=== PATIENT | female | born 1995 | race Two or more races ===

== ENCOUNTER 2021-08-28 15:11 | Inpatient (IN) | payer OTHER ==
[2021-08-28] MEDS ORDERED: Nalbuphine 10 MG/1 ML Vial IVPUSH PRN (15:31)
[2021-08-28] MEDS ORDERED: Carboprost Tromethamine 250 MCG/1 ML Amp IM PRN (15:31)
[2021-08-28] MEDS ORDERED: Water For Irrigation,Sterile 1,000 ML Container IRR PRN (15:31)
[2021-08-28] MEDS ORDERED: Sodium Chloride 0.9% 2.5 ML Syringe FLUSH PRN (15:31)
[2021-08-28] MEDS ORDERED: Tranexamic Acid 1,000 MG in Sodium Chloride 0.9% 100 ML IV PRN (15:31)
[2021-08-28] MEDS ORDERED: Ondansetron 4 MG/2 ML SDV IVPUSH PRN (15:31)
[2021-08-28] MEDS ORDERED: Misoprostol 200 MCG Tab PO PRN (15:31)
[2021-08-28] MEDS ORDERED: Sodium Chloride 0.9% 10 ML Syringe FLUSH PRN (15:31)
[2021-08-28] MEDS ORDERED: Sodium Chloride 0.9% 10 ML SDV IV PRN (15:31)
[2021-08-28] MEDS ORDERED: Butorphanol 1 MG/ML SDV IVPUSH PRN (15:31)
[2021-08-28] MEDS ORDERED: Lidocaine 1% 50 ML MDV INJECT PRN (15:31)
[2021-08-28] MEDS ORDERED: Methylergonovine 0.2 MG/1 ML Amp IM PRN (15:31)
[2021-08-28] MEDS ORDERED: Oxytocin/0.9 % Sodium Chloride 30 UNIT/500 ML BAG IV SCH ×2 (15:45→22:15)
--- NOTE | 2021-08-28 15:49 | PCM.LDHP ---
L&D History of Present Illness - General Date of Service: 08/28/21 Admit Problem/Dx: Patient Status Order with Admit Dx/Problem 08/28/21 15:31 Patient Status [ADT] Routine Admission Diagnosis/Problem Admission Diagnosis/Problem Source of Information: Patient History Limitations: Reports: No Limitations - History of Present Illness Introduction:: 25 year old G1 female at 40w4d (EDC 08/24/2021 by 7w2d US) presents in spontaneous labor. Was evaluated on labor and delivery for contractions every 6- 10 minutes this morning, however, no cervical change was noted and she was discharged with labor precautions. States that around 1400 this afternoon, her contractions increased in intensity to every 4 minutes and they return to the hospital. Requesting epidural for pain management at this time. Denies leaking fluid or vaginal bleeding. Reports good movement. uncomplicated except for GBS positive status. 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: Reports: Musculoskeletal History: Reports: None Neurological History: Reports: None Psychiatric History: Reports: Depression Endocrine/Metabolic History: Reports: Hypothyroidism Hematologic History: Reports: None - Infectious Disease History Infectious Disease History: Reports: None - Past Surgical History HEENT Surgical History: Reports: Tonsillectomy, Other (See Below) Other HEENT Surgeries/Procedures: removal of wisdom teeth Cardiovascular Surgical History: Reports: None Social & Family History - Family History Family Medical History: No Pertinent Family History Endocrine/Metabolic: Reports: Hypothyroidism - Caffeine Use Caffeine Use: Reports: Soda Other Caffeine Use: 2 cans H&P Review of Systems - Review of Systems: Review Of Systems: See Below General: Reports: No Symptoms HEENT: Reports: No Symptoms Pulmonary: Reports: No Symptoms Cardiovascular: Reports: No Symptoms Gastrointestinal: Reports: Abdominal Pain Genitourinary: Reports: No Symptoms Musculoskeletal: Reports: Back Pain Skin: Reports: No Symptoms Psychiatric: Reports: No Symptoms Neurological: Reports: No Symptoms Hematologic/Lymphatic: Reports: No Symptoms Immunologic: Reports: No Symptoms L&D Exam - Exam Exam: See Below - OB Specific Contraction Frequency (min): 5 Contraction Intensity: Moderate Movement: Active Heart Tones: Present Heart Tones per Min: 140 Heart Rate (FHR) Variability: Moderate (6-25 bpm) Presentation: Vertex Estimated Weight: 7lbs by Yury's - Brown Score Brown Score Cervix Position: Anterior Brown Score Consistency: Soft Brown Score Effacement: >80% Brown Score Dilation: 3-4 cm Brown Score 's Station: -1 ,0 Brown Score Total: 11 - Exam General: Alert Lungs: Normal Respiratory Effort Cardiovascular: Regular Rate GI/Abdominal Exam: Soft, Non-Tender Back Exam: Full Range of Motion Extremities: Normal Range of Motion, Non-Tender, No Pedal Edema Skin: Warm, Dry, Intact Psychiatric: Normal Mood Problem List Initiated/Reviewed/Updated: Yes Orders Last 24hrs: Active Orders 24 hr Category Date Time Status Patient Status [ADT] Routine ADT 08/28/21 15:31 Active Heart Tones [RC] CONTINUOUS Care 08/28/21 15:31 Active Non Stress Test [RC] PER UNIT ROUTINE Care 08/28/21 15:31 Active May Shower [RC] ASDIRECTED Care 08/28/21 15:31 Active Notify Provider [RC] PRN Care 08/28/21 15:31 Active Up ad Candace [RC] ASDIRECTED Care 08/28/21 15:31 Active Vaginal Exam [RC] PRN Care 08/28/21 15:31 Active Vital Signs [RC] PER UNIT ROUTINE Care 08/28/21 15:31 Active CBC W/O DIFF,HEMOGRAM [HEME] Routine Lab 08/28/21 15:31 Ordered CORONAVIRUS COVID-19 DAVID [MOLEC] Routine Lab 08/28/21 15:36 Ordered RPR (SYPHILIS SERO) W/ RFLX [REF] Routine Lab 08/28/21 15:31 Ordered TYPE AND SCREEN [BBK] Routine Lab 08/28/21 15:31 Ordered Ampicillin 1 gm Med 08/28/21 20:00 Active Sodium Chloride 0.9% [Normal Saline AdvBag] 50 ml IV Q4H Ampicillin 2 gm Med 08/28/21 16:00 Active Sodium Chloride 0.9% [Normal Saline AdvBag] 100 ml IV ONETIME Butorphanol [Stadol] Med 08/28/21 15:31 Active 1 mg IVPUSH Q1H PRN Carboprost Tromethamine [Hemabate DS] Med 08/28/21 15:31 Active 250 mcg IM ASDIRECTED PRN Lactated Ringers [Ringers, Lactated] 1,000 ml Med 08/28/21 15:45 Active IV ASDIRECTED Lidocaine 1% [Xylocaine 1%] Med 08/28/21 15:31 Active 50 ml INJECT ONETIME PRN Methylergonovine [Methergine] Med 08/28/21 15:31 Active 0.2 mg IM ASDIRECTED PRN Nalbuphine [Nubain] Med 08/28/21 15:31 Active 10 mg IVPUSH Q1H PRN Ondansetron [Zofran] Med 08/28/21 15:31 Active 4 mg IVPUSH Q6H PRN Oxytocin/0.9 % Sodium Chloride [Oxytocin 30 Unit in NS Med 08/28/21 15:45 Active 0.9% 500 ML Premix] 30 unit in 500 ml IV TITRATE Sodium Chloride 0.9% [Normal Saline] Med 08/28/21 15:31 Active 10 ml IV ASDIRECTED PRN Sodium Chloride 0.9% [Saline Flush] Med 08/28/21 15:31 Active 10 ml FLUSH ASDIRECTED PRN Sodium Chloride 0.9% [Saline Flush] Med 08/28/21 15:31 Active 2.5 ml FLUSH ASDIRECTED PRN Tranexamic Acid [Cyklokapron] 1,000 mg Med 08/28/21 15:31 Active Sodium Chloride 0.9% [Normal Saline] 100 ml IV ONETIME Water For Irrigation,Sterile [Sterile Water for Med 08/28/21 15:31 Active Irrigation] 1,000 ml IRR ASDIRECTED PRN miSOPROStoL [Cytotec] Med 08/28/21 15:31 Active 200 mcg PO ONETIME PRN Scalp Electrode [WOMSER] Per Unit Routine Oth 08/28/21 15:31 Ordered Peripheral IV Insertion Adult [OM.PC] Routine Oth 08/28/21 15:31 Ordered Resuscitation Status Routine Resus Stat 08/28/21 15:31 Ordered Medication Orders Butorphanol Tartrate (Butorphanol 1 Mg/Ml Sdv) 1 mg IVPUSH Q1H PRN PRN Reason: Pain (severe 7-10) Carboprost Tromethamine (Carboprost Tromethamine 250 Mcg/1 Ml Amp) 250 mcg IM ASDIRECTED PRN PRN Reason: Post Hemorrhage Oxytocin/Sodium Chloride (Oxytocin 30 Unit In Ns 0.9% 500 Ml Premix) 30 unit in 500 mls @ 500 mls/hr IV TITRATE SERAFIN Tranexamic Acid 1,000 mg/ (Sodium Chloride) 110 mls @ 660 mls/hr IV ONETIME PRN PRN Reason: Bleeding Lactated Ringer's (Ringers, Lactated) 1,000 mls @ 150 mls/hr IV ASDIRECTED SERAFIN Ampicillin Sodium 2 gm/ Sodium (Chloride) 100 mls @ 200 mls/hr IV ONETIME ONE Stop: 08/28/21 16:29 Ampicillin Sodium 1 gm/ Sodium (Chloride) 50 mls @ 100 mls/hr IV Q4H [facility] Lidocaine HCl (Lidocaine 1% 50 Ml Mdv) 50 ml INJECT ONETIME PRN PRN Reason: Laceration repair Methylergonovine Maleate (Methylergonovine 0.2 Mg/1 Ml Amp) 0.2 mg IM ASDIRECTED PRN PRN Reason: Post Hemorrhage Misoprostol (Misoprostol 200 Mcg Tab) 200 mcg PO ONETIME PRN PRN Reason: Post Hemorrhage Nalbuphine HCl (Nalbuphine 10 Mg/1 Ml Vial) 10 mg IVPUSH Q1H PRN PRN Reason: Pain (severe 7-10) Ondansetron HCl (Ondansetron 4 Mg/2 Ml Sdv) 4 mg IVPUSH Q6H PRN PRN Reason: Nausea/Vomiting Sodium Chloride (Sodium Chloride 0.9% 10 Ml Syringe) 10 ml FLUSH ASDIRECTED PRN PRN Reason: Keep Vein Open Sodium Chloride (Sodium Chloride 0.9% 2.5 Ml Syringe) 2.5 ml FLUSH ASDIRECTED PRN PRN Reason: Keep Vein Open Sodium Chloride (Sodium Chloride 0.9% 10 Ml Sdv) 10 ml IV ASDIRECTED PRN PRN Reason: IV Use Sterile Water (Water For Irrigation,Sterile 1,000 Ml Container) 1,000 ml IRR ASDIRECTED PRN PRN Reason: delivery Assessment/Plan Comment:: 25 year old G1 female at 40w4d (EDC 08/24/2021 by 7w2d US) in spontaneous labor * Admit to labor and delivery * Epidural PRN pain management * IV Ampicillin ordered due to GBS positive status * Rh positive, rubella immune * Continue with expectant management of labor at this time
[2021-08-28] MEDS: Lactated Ringers 1,000 ML IV SCH ×2 (15:50→17:01)
[2021-08-28] MEDS ORDERED: Ropivacaine HCl/PF 200 ML ONE (15:55)
[2021-08-28] MEDS ORDERED: Ampicillin 2 GM in Sodium Chloride 0.9% 100 ML IV ONE (16:00)
[2021-08-28] MEDS ORDERED: ePHEDrine 50 MG/ML SDV IVPUSH PRN ×2 (16:30)
[2021-08-28] MEDS ORDERED: Ropivacaine 0.2% 2MG/ML 200 ML Bag EPIDUR SCH (16:30)
--- NOTE | 2021-08-28 16:30 | PCM.PREANE ---
Preanesthetic Assessment - Anesthesia/Transfusion/Family Hx Anesthesia History: No Prior Anesthesia Family History of Anesthesia Reaction: No - Review of Systems General: No Symptoms Pulmonary: No Symptoms Cardiovascular: No Symptoms Gastrointestinal: No Symptoms Neurological: No Symptoms Other: Reports: None - Physical Assessment NPO Status Date: 08/28/21 NPO Status Time: 11:00 Height: 5 ft 7 in Weight: 159 lb ASA Class: 2 Mental Status: Alert & Oriented x3 Airway Class: Mallampati = 1 Dentition: Reports: Normal Dentition ROM/Head Extension: Full Lungs: Clear to Auscultation, Normal Respiratory Effort Cardiovascular: Regular Rate, Regular Rhythm - Lab Values: Laboratory Last Values WBC 20.67 K/uL (4.0-11.0) H 08/28/21 15:45 RBC 4.21 M/uL (4.30-5.90) L 08/28/21 15:45 Hgb 13.3 g/dL (12.0-16.0) 08/28/21 15:45 Hct 38.2 % (36.0-46.0) 08/28/21 15:45 MCV 90.7 fL (80.0-98.0) 08/28/21 15:45 MCH 31.6 pg (27.0-32.0) 08/28/21 15:45 MCHC 34.8 g/dL (31.0-37.0) 08/28/21 15:45 RDW Std Deviation 44.8 fl (28.0-62.0) 08/28/21 15:45 RDW Coeff of Jacobo 14 % (11.0-15.0) 08/28/21 15:45 Plt Count 184 K/uL (150-400) 08/28/21 15:45 MPV 12.30 fL (7.40-12.00) H 08/28/21 15:45 Nucleated RBC % 0.0 /100WBC 08/28/21 15:45 Nucleated RBCs # 0 K/uL 08/28/21 15:45 - Allergies Allergies/Adverse Reactions: Allergies Allergy/AdvReac Type Severity Reaction Status Date / Time No Known Allergies Allergy Verified 08/28/21 07:17 - Blood Blood Available: Yes - Acknowledgements Anesthesia Type Planned: Epidural Pt an Appropriate Candidate for the Planned Anesthesia: Yes Alternatives and Risks of Anesthesia Discussed w Pt/Guardian: Yes Pt/Guardian Understands and Agrees with Anesthesia Plan: Yes PreAnesthesia Questionnaire HEENT History: Reports: None Cardiovascular History: Reports: None Respiratory History: Reports: None Gastrointestinal History: Reports: None Genitourinary History: Reports: None [employer]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 History: Reports: None Neurological History: Reports: None Psychiatric History: Reports: Depression Endocrine/Metabolic History: Reports: Hypothyroidism Hematologic History: Reports: None - Infectious Disease History Infectious Disease History: Reports: None - Past Surgical History HEENT Surgical History: Reports: Tonsillectomy, Other (See Below) Other HEENT Surgeries/Procedures: removal of wisdom teeth Cardiovascular Surgical History: Reports: None - HOME MEDS Home Medications: Home Meds Levothyroxine [Synthroid] 50 mcg PO DAILY 11/24/15 [History] - CURRENT (IN HOUSE) MEDS Current Meds: Current Medications Butorphanol Tartrate (Butorphanol 1 Mg/Ml Sdv) 1 mg IVPUSH Q1H PRN PRN Reason: Pain (severe 7-10) Carboprost Tromethamine (Carboprost Tromethamine 250 Mcg/1 Ml Amp) 250 mcg IM ASDIRECTED PRN PRN Reason: Post Hemorrhage Oxytocin/Sodium Chloride (Oxytocin 30 Unit In Ns 0.9% 500 Ml Premix) 30 unit in 500 mls @ 500 mls/hr IV TITRATE [facility] Tranexamic Acid 1,000 mg/ (Sodium Chloride) 110 mls @ 660 mls/hr IV ONETIME PRN PRN Reason: Bleeding Lactated Ringer's (Ringers, Lactated) 1,000 mls @ 150 mls/hr IV ASDIRECTED [facility] Last Admin: 08/28/21 15:50 Dose: 999 mls/hr Documented by: Ampicillin Sodium 1 gm/ Sodium (Chloride) 50 mls @ 100 mls/hr IV Q4H [facility] Lidocaine HCl (Lidocaine 1% 50 Ml Mdv) 50 ml INJECT ONETIME PRN PRN Reason: Laceration repair Methylergonovine Maleate (Methylergonovine 0.2 Mg/1 Ml Amp) 0.2 mg IM ASDIRECTED PRN PRN Reason: Post Hemorrhage Misoprostol (Misoprostol 200 Mcg Tab) 200 mcg PO ONETIME PRN PRN Reason: Post Hemorrhage Nalbuphine HCl (Nalbuphine 10 Mg/1 Ml Vial) 10 mg IVPUSH Q1H PRN PRN Reason: Pain (severe 7-10) Ondansetron HCl (Ondansetron 4 Mg/2 Ml Sdv) 4 mg IVPUSH Q6H PRN PRN Reason: Nausea/Vomiting Sodium Chloride (Sodium Chloride 0.9% 10 Ml Syringe) 10 ml FLUSH ASDIRECTED PRN PRN Reason: Keep Vein Open Sodium Chloride (Sodium Chloride 0.9% 2.5 Ml Syringe) 2.5 ml FLUSH ASDIRECTED PRN PRN Reason: Keep Vein Open Sodium Chloride (Sodium Chloride 0.9% 10 Ml Sdv) 10 ml IV ASDIRECTED PRN PRN Reason: IV Use Sterile Water (Water For Irrigation,Sterile 1,000 Ml Container) 1,000 ml IRR ASDIRECTED PRN PRN Reason: delivery Discontinued Medications Ampicillin Sodium 2 gm/ Sodium (Chloride) 100 mls @ 200 mls/hr IV ONETIME ONE Stop: 08/28/21 16:29 Last Admin: 08/28/21 16:09 Dose: 200 mls/hr Documented by: Ropivacaine (Naropin 0.2%) Confirm Administered Dose 200 mls @ as directed .ROUTE .STK-MED ONE Stop: 08/28/21 15:56
--- NOTE | 2021-08-28 16:33 | PCM.SN.2 ---
Time Documentation - Pre-Procedure Checklist Attending Provider Aware: Yes Chart Reviewed: Yes Consent Signed: Yes Labs Reviewed: Yes VS/FHR Reviewed: Yes Pt an Appropriate Candidate for the Planned Anesthesia: Yes Alternatives and Risks of Anesthesia Discussed w Pt/Guardian: Yes - Procedure Procedure Start Date: 08/28/21 Procedure Start Time: 16:[address]: Reports: Blood Pressure, Heart Rate, SPO2 Functional IV: Yes Safety Measures: Reports: Patient Identified, Procedure Verified, Site Verified, Procedure Time Out Patient Position: Reports: Sitting Local Anesthetic: Reports: Intradermal Wheal w Lidocaine 1% Regional Placement Level: Reports: L3-4 Needle: Reports: 17 g Touhy Approach: Reports: Midline Technique: Reports: SANTHOSH Glass Syringe Parasthesia: Reports: None Fluid Obtained: Reports: None Test Dose Medication: Reports: Lidocaine 1.5% w Epinephrine 1:200,000 Test Dose Response: Reports: Negative Continuous Infusion Start Time: 16:15 Continuous Infusion Medication: 0.2% Naropin Continuous Infusion Rate: 18 Continuous Infusion PCS Bolus Option: 4 Continuous Infusion Lockout Dose (cc/hr): 30 Patient Position Post Placement: Reports: Supline/JAIME Post-procedure Pain Level: 2 VS and FHR Monitored in Unit Post Placement: Yes Procedure End Date: 08/28/21 Procedure End Time: 17:00
--- NOTE | 2021-08-28 16:33 | PCM48HPAN ---
Post Anesthesia Note - EVALUATION WITHIN 48HRS OF ANESTHETIC Vital Signs in Normal Range: Yes Patient Participated in Evaluation: Yes Respiratory Function Stable: Yes Airway Patent: Yes Cardiovascular Function Stable: Yes Hydration Status Stable: Yes Pain Control Satisfactory: Yes Nausea and Vomiting Control Satisfactory: Yes Mental Status Recovered: Yes
[2021-08-28] MEDS: Ampicillin 1 GM in Sodium Chloride 0.9% 50 ML IV SCH (20:02)
[2021-08-28] MEDS ORDERED: Ampicillin 1 GM Vial ONE (22:39)
[2021-08-29] MEDS: Lactated Ringers 1,000 ML IV SCH (00:05)
[2021-08-29] MEDS: Ampicillin 1 GM in Sodium Chloride 0.9% 50 ML IV SCH (00:05)
[2021-08-29] MEDS ORDERED: Morphine 2 MG/ML SYRINGE IVPUSH ONE (03:59)
[2021-08-29] MEDS ORDERED: Acetaminophen 500 MG Tab PO PRN ×2 (05:06)
[2021-08-29] MEDS ORDERED: Witch Hazel Medicated Pads 40/Jar TOP PRN (05:06)
[2021-08-29] MEDS ORDERED: Bisacodyl 10 MG Supp RECTAL PRN (05:06)
[2021-08-29] MEDS ORDERED: Benzocaine/Menthol 20%-0.5% Spray 78 GM Cannister TOP PRN (05:06)
[2021-08-29] MEDS ORDERED: oxyCODONE 5 MG Tab PO PRN (05:06)
[2021-08-29] MEDS ORDERED: Ibuprofen 400 MG Tab PO PRN (05:06)
[2021-08-29] MEDS ORDERED: Ibuprofen 800 MG Tab PO PRN (05:06)
[2021-08-29] MEDS ORDERED: Lanolin 100% Cream 7 GM Tube TOP PRN (05:06)
[2021-08-29] MEDS ORDERED: Docusate Sodium 100 MG Cap PO PRN (05:06)
--- NOTE | 2021-08-29 05:10 | PCM.DEL ---
L & D Note - General Info Date of Service: 08/29/21 Mother's Due Date: 08/24/21 - Delivery Note Labor: Augmented by Oxytocin Delivery Outcome: Livebirth Infant Delivery Method: Spontaneous Vaginal Delivery-Single Presentation: Right Occiput Anterior (KATE) Nuchal Cord: None Anesthesia Type: Epidural, Local Anesthetic: Lidocaine (Xylocaine) 1% Plain Local Anesthetic Volume: Other (15cc) Amniotic Fluid Description: Meconium Stained Episiotomy Type: None Laceration: 2nd Degree Suture type: Vicryl Suture size: 2-0 Placenta: Intact, Spontaneous Cord: 3 Vessels Estimated Blood Loss: 250 Resuscitation Needed: No [place]: Suctioned, Bulb Syringe, Stimulated Score 1 min: 7 Score 5 min: 9 Delivery Comments (Free Text/Narrative):: Dictation #[id number] - General Info Date of Service: 08/29/21 Admission Dx/Problem (Free Text): Patient Status Order with Admit Dx/Problem 08/28/21 15:31 Patient Status [ADT] Routine Admission Diagnosis/Problem Admission Diagnosis/Problem - Patient Data Weight - Most Recent: 159 lb Lab Results Last 24 Hours: Laboratory Results - last 24 hr 08/28/21 08/28/21 08/28/21 Range/Units 15:45 15:45 15:48 WBC 20.67 H (4.0-11.0) K/uL RBC 4.21 L (4.30-5.90) M/uL Hgb 13.3 (12.0-16.0) g/dL Hct 38.2 (36.0-46.0) % MCV 90.7 (80.0-98.0) fL MCH 31.6 (27.0-32.0) pg MCHC 34.8 (31.0-37.0) g/dL RDW Std Deviation 44.8 (28.0-62.0) fl RDW Coeff of Jacobo 14 (11.0-15.0) % Plt Count 184 (150-400) K/uL MPV 12.30 H (7.40-12.00) fL Nucleated RBC % 0.0 /100WBC Nucleated RBCs # 0 K/uL SARS-CoV-2 RNA (DAVID) NEGATIVE (NEGATIVE) Blood Type A POSITIVE Antibody Screen NEGATIVE Med Orders - Current: Current Medications Acetaminophen (Acetaminophen 500 Mg Tab) 500 mg PO Q4H PRN PRN Reason: Pain (mild 1-3) Acetaminophen (Acetaminophen 500 Mg Tab) 1,000 mg PO Q4H PRN PRN Reason: Pain (mild 1-3) Benzocaine/Menthol (Benzocaine/Menthol 20%-0.5% [place] 78 Gm Cannister) 78 gm TOP ASDIRECTED PRN PRN Reason: Perineal Comfort Measure Bisacodyl (Bisacodyl 10 Mg Supp) 10 mg RECTAL ONETIME PRN PRN Reason: Constipation Butorphanol Tartrate (Butorphanol 1 Mg/Ml Sdv) 1 mg IVPUSH Q1H PRN PRN Reason: Pain (severe 7-10) Carboprost Tromethamine (Carboprost Tromethamine 250 Mcg/1 Ml Amp) 250 mcg IM ASDIRECTED PRN PRN Reason: Post Hemorrhage Docusate Sodium (Docusate Sodium 100 Mg Cap) 100 mg PO Q12H PRN PRN Reason: Constipation Emollient Ointment (Lanolin 100% Cream 7 Gm Tube) 0 gm TOP ASDIRECTED PRN PRN Reason: Sore Nipples Ephedrine Sulfate (Ephedrine 50 Mg/Ml Sdv) 10 mg IVPUSH Q1M PRN PRN Reason: Hypotension Ephedrine Sulfate (Ephedrine 50 Mg/Ml Sdv) 10 mg IVPUSH Q5M PRN PRN Reason: Hypotension Oxytocin/Sodium Chloride (Oxytocin 30 Unit In Ns 0.9% 500 Ml Premix) 30 unit in 500 mls @ 500 mls/hr IV TITRATE [facility] Tranexamic Acid 1,000 mg/ (Sodium Chloride) 110 mls @ 660 mls/hr IV ONETIME PRN PRN Reason: Bleeding Lactated Ringer's (Ringers, Lactated) 1,000 mls @ 150 mls/hr IV ASDIRECTED [facility] Last Admin: 08/29/21 00:05 Dose: 150 mls/hr Documented by: Ampicillin Sodium 1 gm/ Sodium (Chloride) 50 mls @ 100 mls/hr IV Q4H [facility] Last Admin: 08/29/21 00:05 Dose: 100 mls/hr Documented by: Oxytocin/Sodium Chloride (Oxytocin 30 Unit In Ns 0.9% 500 Ml Premix) 30 unit in 500 mls @ 2 mls/hr IV TITRATE [facility]; Protocol Last Infusion: 08/29/21 01:35 Dose: 6 munits/min, 6 mls/hr Documented by: Ibuprofen (Ibuprofen 400 Mg Tab) 400 mg PO Q4H PRN PRN Reason: Pain (mild 1-3) Ibuprofen (Ibuprofen 800 Mg Tab) 800 mg PO Q6H PRN PRN Reason: Cramping Lidocaine HCl (Lidocaine 1% 50 Ml Mdv) 50 ml INJECT ONETIME PRN PRN Reason: Laceration repair Last Admin: 08/29/21 04:01 Dose: 50 ml Documented by: Methylergonovine Maleate (Methylergonovine 0.2 Mg/1 Ml Amp) 0.2 mg IM ASDIRECTED PRN PRN Reason: Post Hemorrhage Miscellaneous Medication (Phenylephrine Hcl In 0.9% Nacl 1 Mg/10 Ml Syringe) 0.1 mg IVPUSH Q1M PRN PRN Reason: Hypotension Misoprostol (Misoprostol 200 Mcg Tab) 200 mcg PO ONETIME PRN PRN Reason: Post Hemorrhage Nalbuphine HCl (Nalbuphine 10 Mg/1 Ml Vial) 10 mg IVPUSH Q1H PRN PRN Reason: Pain (severe 7-10) Ondansetron HCl (Ondansetron 4 Mg/2 Ml Sdv) 4 mg IVPUSH Q6H PRN PRN Reason: Nausea/Vomiting Last Admin: 08/28/21 20:16 Dose: 4 mg Documented by: Oxycodone HCl (Oxycodone 5 Mg Tab) 5 mg PO Q2H PRN PRN Reason: Pain (severe 7-10) Ropivacaine (Ropivacaine 0.2% 2mg/Ml 200 Ml Bag) 400 mg EPIDUR ASDIRECTED SERAFIN Sodium Chloride (Sodium Chloride 0.9% 10 Ml Syringe) 10 ml FLUSH ASDIRECTED PRN PRN Reason: Keep Vein Open Sodium Chloride (Sodium Chloride 0.9% 2.5 Ml Syringe) 2.5 ml FLUSH ASDIRECTED PRN PRN Reason: Keep Vein Open Sodium Chloride (Sodium Chloride 0.9% 10 Ml Sdv) 10 ml IV ASDIRECTED PRN PRN Reason: IV Use Sterile Water (Water For Irrigation,Sterile 1,000 Ml Container) 1,000 ml IRR ASDIRECTED PRN PRN Reason: delivery Witch Kyra (Witch Kyra Medicated Pads 40/Jar) 1 pad TOP ASDIRECTED PRN PRN Reason: comfort care Discontinued Medications Ampicillin Sodium (Ampicillin 1 Gm Vial) Confirm Administered Dose 1 gm .ROUTE .STK-MED ONE Stop: 08/28/21 22:40 Ampicillin Sodium 2 gm/ Sodium (Chloride) 100 mls @ 200 mls/hr IV ONETIME ONE Stop: 08/28/21 16:29 Last Admin: 08/28/21 16:09 Dose: 200 mls/hr Documented by: Ropivacaine (Naropin 0.2%) Confirm Administered Dose 200 mls @ as directed .ROUTE .STK-MED ONE Stop: 08/28/21 15:56 Last Admin: 08/28/21 17:02 Dose: Not Given Documented by: Morphine Sulfate (Morphine 2 Mg/Ml Syringe) 2 mg IVPUSH ONETIME ONE Stop: 08/29/21 04:00 Last Admin: 08/29/21 04:40 Dose: 2 mg Documented by: - Exam Urinary Catheter Total Time: 0Days 0Hours - Problem List Review Problem List Initiated/Reviewed/Updated: Yes - My Orders Last 24 Hours: My Active Orders 08/28/21 15:31 Patient Status [ADT] Routine Heart Tones [RC] CONTINUOUS Non Stress Test [RC] PER UNIT ROUTINE May Shower [RC] ASDIRECTED Notify Provider [RC] PRN Up ad Candace [RC] ASDIRECTED Vaginal Exam [RC] PRN Vital Signs [RC] PER UNIT ROUTINE Butorphanol [Stadol] 1 mg IVPUSH Q1H PRN Carboprost Tromethamine [Hemabate DS] 250 mcg IM ASDIRECTED PRN Lidocaine 1% [Xylocaine 1%] 50 ml INJECT ONETIME PRN Methylergonovine [Methergine] 0.2 mg IM ASDIRECTED PRN Nalbuphine [Nubain] 10 mg IVPUSH Q1H PRN Ondansetron [Zofran] 4 mg IVPUSH Q6H PRN Sodium Chloride 0.9% [Normal Saline] 10 ml IV ASDIRECTED PRN Sodium Chloride 0.9% [Saline Flush] 10 ml FLUSH ASDIRECTED PRN Sodium Chloride 0.9% [Saline Flush] 2.5 ml FLUSH ASDIRECTED PRN Tranexamic Acid [Cyklokapron] 1,000 mg Sodium Chloride 0.9% [Normal Saline] 100 ml IV ONETIME Water For Irrigation,Sterile [Sterile Water for Irrigation] 1,000 ml IRR ASDIRECTED PRN miSOPROStoL [Cytotec] 200 mcg PO ONETIME PRN Scalp Electrode [WOMSER] Per Unit Routine Peripheral IV Insertion Adult [OM.PC] Routine Resuscitation Status Routine 08/28/21 15:45 RPR (SYPHILIS SERO) W/ RFLX [REF] Routine Lactated Ringers [Ringers, Lactated] 1,000 ml IV ASDIRECTED Oxytocin/0.9 % Sodium Chloride [Oxytocin 30 Unit in NS 0.9% 500 ML Premix] 30 unit in 500 ml IV TITRATE 08/28/21 20:00 Ampicillin 1 gm Sodium Chloride 0.9% [Normal Saline AdvBag] 50 ml IV Q4H 08/28/21 22:15 Oxytocin/0.9 % Sodium Chloride [Oxytocin 30 Unit in NS 0.9% 500 ML Premix] 30 unit in 500 ml IV TITRATE 08/29/21 04:34 BLOOD GAS VENOUS UMBILICAL [BG] Routine 08/29/21 04:55 BLOOD GAS ARTERIAL UMBILICAL [BG] Routine 08/29/21 05:06 Patient Status [ADT] Routine May Shower [RC] ASDIRECTED Up ad Candace [RC] ASDIRECTED Vital Signs [RC] PER UNIT ROUTINE Acetaminophen [Tylenol Extra Strength] 1,000 mg PO Q4H PRN Acetaminophen [Tylenol Extra Strength] 500 mg PO Q4H PRN Benzocaine/Menthol [Dermoplast Pain Relief 20%-0.5% [place]] 78 gm TOP ASDIRECTED PRN Docusate Sodium [Colace] 100 mg PO Q12H PRN Ibuprofen [Motrin] 400 mg PO Q4H PRN Ibuprofen [Motrin] 800 mg PO Q6H PRN Lanolin [Lansinoh HPA] See Dose Instructions TOP ASDIRECTED PRN bisacodyL [Dulcolax] 10 mg RECTAL ONETIME PRN oxyCODONE 5 mg PO Q2H PRN witch Kyra [Tucks] 1 pad TOP ASDIRECTED PRN Assess Lochia [WOMSER] Per Unit Routine Assess Uterine Involution [WOMSER] Per Unit Routine Peripheral IV Discontinue [OM.PC] Routine 08/30/21 05:11 HEMOGLOBIN/HEMATOCRIT,HH [HEME] Timed - Assessment Assessment:: 25 year old G1 now P1 s/p at 40w5d - Plan Plan:: Routine cares * A positive, rubella immune * GBS positive, s/p IV Ampicillin x3 doses * PO pain medication ordered PRN * Regular diet as tolerated * Encourage ambulation and fluid intake when able * Plans to breastfeed, nursing assistance as needed Hypothyroidism * Continue levothyroxine 50mcg daily Dispo: stable. Admit to room and anticipate routine course
--- NOTE | 2021-08-29 06:04 | OR ---
SURGEON: ALISSA BAHENA MD DATE OF PROCEDURE: 08/29/2021 PREOPERATIVE DIAGNOSES: 1. Wagner intrauterine at 40 weeks and 5 days' gestation. 2. Post-term . 3. Spontaneous onset of labor. 4. Maternal hypothyroidism. POSTOPERATIVE DIAGNOSES: 1. Wagner intrauterine at 40 weeks and 5 days' gestation. 2. Post-term . 3. Spontaneous onset of labor. 4. Maternal hypothyroidism. PROCEDURES PERFORMED: 1. Normal spontaneous vaginal delivery. 2. Repair of second-degree perineal laceration. PRIMARY SURGEON: Alissa Bahena MD ANESTHESIOLOGIST: Dr. Simba Jaramillo. ANESTHESIA: Epidural, local anesthetic. ESTIMATED BLOOD LOSS: 250 mL. FINDINGS: Viable female infant, score of 7 and 9. Thick meconium-stained amniotic fluid. weight of 3360 g. INDICATION FOR PROCEDURE: Patient is a 25-year-old, 1, who presented to Labor and Delivery on 08/28/2021 at 40 weeks and 4 days' gestation with contractions. She was initially evaluated for several hours in the claims consultant, however, was sent home due to no cervical change. She returned to Labor and Delivery in the afternoon of 08/28, stating that her contractions increased in frequency and intensity around 1400. Patient was then admitted and allowed to labor. She was GBS positive and IV ampicillin was initiated. After two doses of ampicillin, patient's contractions were noted to have spaced out, and IV Pitocin was then initiated as patient was only 7 cm to augment labor. Labor progressed with reassuring heart tones throughout. At approximately 0130 on 08/29/2021, I was notified that the patient was complete and 0 station and would be allowed to labor down for approximately an hour. At , the patient began pushing efforts with the nurse. I was called to the room for delivery at approximately 0330. Patient was then at +2 station. DESCRIPTION OF PROCEDURE: The patient pushed with contractions for approximately 45 more minutes with continual descent. head delivered in occiput anterior position, restituted ROT. No nuchal cord was noted. Anterior shoulder delivered easily. Posterior shoulder and remaining body were then delivered. The baby was then placed on the maternal abdomen and evaluated by waiting nursing staff and respiratory therapist due to the thick meconium. The baby was pink, crying vigorously, and moving all extremities immediately after the delivery. The umbilical cord was then clamped and cut after approximately 2 minutes and no longer pulsating. Arterial, venous, and cord blood gases were then obtained. The placenta was then expressed intact. Patient then received 2 mg of morphine as her epidural was no longer effective. Inspection of the perineum was then performed and a small second-degree laceration was noted. Prior to repair of the laceration, approximately 15 mL of local anesthetic was injected to help with pain management. The second-degree perineal laceration was then repaired with 2-0 Vicryl in the usual fashion. Hemostasis was confirmed, fundal massage was performed, and the patient's bleeding was light. Uterine fundus was firm and below the umbilicus. Patient tolerated the procedure well and is recovering in labor room in stable condition. KATHI DILL /[id number]
--- NOTE | 2021-08-30 09:50 | PCM.PNPP ---
- General Info Date of Service: 08/30/21 Admission Dx/Problem (Free Text): Patient Status Order with Admit Dx/Problem 08/28/21 15:31 Patient Status [ADT] Routine Admission Diagnosis/Problem Admission Diagnosis/Problem Subjective Update: Ambulating about room during rounds. Pain controlled with PO medications. Ambulating and voiding independently. Tolerating regular diet. Lochia decreasing. Denies headache, visual changes or right upper quadrant pain. baby, going well. - General Info Date of Service: 08/30/21 - Patient Data Vital Signs - Most Recent: Last Vital Signs Temp 97.4 F 08/30/21 08:00 Pulse 88 08/30/21 08:00 Resp 18 08/30/21 08:00 BP 140/82 08/30/21 08:20 Pulse Ox 95 08/30/21 08:00 Weight - Most Recent: 159 lb Lab Results - Last 24 Hours: Laboratory Results - last 24 hr 08/30/21 Range/Units 05:50 Hgb 10.8 L (12.0-16.0) g/dL Hct 30.8 L (36.0-46.0) % Med Orders - Current: Current Medications Acetaminophen (Acetaminophen 500 Mg Tab) 500 mg PO Q4H PRN PRN Reason: Pain (mild 1-3) Acetaminophen (Acetaminophen 500 Mg Tab) 1,000 mg PO Q4H PRN PRN Reason: Pain (mild 1-3) Benzocaine/Menthol (Benzocaine/Menthol 20%-0.5% [place] 78 Gm Cannister) 78 gm TOP ASDIRECTED PRN PRN Reason: Perineal Comfort Measure Last Admin: 08/29/21 06:09 Dose: 1 canister Documented by: Bisacodyl (Bisacodyl 10 Mg Supp) 10 mg RECTAL ONETIME PRN PRN Reason: Constipation Butorphanol Tartrate (Butorphanol 1 Mg/Ml Sdv) 1 mg IVPUSH Q1H PRN PRN Reason: Pain (severe 7-10) Carboprost Tromethamine (Carboprost Tromethamine 250 Mcg/1 Ml Amp) 250 mcg IM ASDIRECTED PRN PRN Reason: Post Hemorrhage Docusate Sodium (Docusate Sodium 100 Mg Cap) 100 mg PO Q12H PRN PRN Reason: Constipation Emollient Ointment (Lanolin 100% Cream 7 Gm Tube) 0 gm TOP ASDIRECTED PRN PRN Reason: Sore Nipples Last Admin: 08/29/21 06:10 Dose: 1 tube Documented by: Ephedrine Sulfate (Ephedrine 50 Mg/Ml Sdv) 10 mg IVPUSH Q1M PRN PRN Reason: Hypotension Ephedrine Sulfate (Ephedrine 50 Mg/Ml Sdv) 10 mg IVPUSH Q5M PRN PRN Reason: Hypotension Oxytocin/Sodium Chloride (Oxytocin 30 Unit In Ns 0.9% 500 Ml Premix) 30 unit in 500 mls @ 500 mls/hr IV TITRATE SERAFIN Tranexamic Acid 1,000 mg/ (Sodium Chloride) 110 mls @ 660 mls/hr IV ONETIME PRN PRN Reason: Bleeding Lactated Ringer's (Ringers, Lactated) 1,000 mls @ 150 mls/hr IV ASDIRECTED SERAFIN Last Admin: 08/29/21 00:05 Dose: 150 mls/hr Documented by: Ampicillin Sodium 1 gm/ Sodium (Chloride) 50 mls @ 100 mls/hr IV Q4H [facility] Last Admin: 08/29/21 00:05 Dose: 100 mls/hr Documented by: Oxytocin/Sodium Chloride (Oxytocin 30 Unit In Ns 0.9% 500 Ml Premix) 30 unit in 500 mls @ 2 mls/hr IV TITRATE [facility]; Protocol Last Infusion: 08/29/21 01:35 Dose: 6 munits/min, 6 mls/hr Documented by: Ibuprofen (Ibuprofen 400 Mg Tab) 400 mg PO Q4H PRN PRN Reason: Pain (mild 1-3) Ibuprofen (Ibuprofen 800 Mg Tab) 800 mg PO Q6H PRN PRN Reason: Cramping Lidocaine HCl (Lidocaine 1% 50 Ml Mdv) 50 ml INJECT ONETIME PRN PRN Reason: Laceration repair Last Admin: 08/29/21 04:01 Dose: 50 ml Documented by: Methylergonovine Maleate (Methylergonovine 0.2 Mg/1 Ml Amp) 0.2 mg IM ASDIRECTED PRN PRN Reason: Post Hemorrhage Miscellaneous Medication (Phenylephrine Hcl In 0.9% Nacl 1 Mg/10 Ml Syringe) 0.1 mg IVPUSH Q1M PRN PRN Reason: Hypotension Misoprostol (Misoprostol 200 Mcg Tab) 200 mcg PO ONETIME PRN PRN Reason: Post Hemorrhage Nalbuphine HCl (Nalbuphine 10 Mg/1 Ml Vial) 10 mg IVPUSH Q1H PRN PRN Reason: Pain (severe 7-10) Ondansetron HCl (Ondansetron 4 Mg/2 Ml Sdv) 4 mg IVPUSH Q6H PRN PRN Reason: Nausea/Vomiting Last Admin: 08/28/21 20:16 Dose: 4 mg Documented by: Oxycodone HCl (Oxycodone 5 Mg Tab) 5 mg PO Q2H PRN PRN Reason: Pain (severe 7-10) Ropivacaine (Ropivacaine 0.2% 2mg/Ml 200 Ml Bag) 400 mg EPIDUR ASDIRECTED SERAFIN Sodium Chloride (Sodium Chloride 0.9% 10 Ml Syringe) 10 ml FLUSH ASDIRECTED PRN PRN Reason: Keep Vein Open Sodium Chloride (Sodium Chloride 0.9% 2.5 Ml Syringe) 2.5 ml FLUSH ASDIRECTED PRN PRN Reason: Keep Vein Open Sodium Chloride (Sodium Chloride 0.9% 10 Ml Sdv) 10 ml IV ASDIRECTED PRN PRN Reason: IV Use Sterile Water (Water For Irrigation,Sterile 1,000 Ml Container) 1,000 ml IRR ASDIRECTED PRN PRN Reason: delivery Witch Kyra (Witch Kyra Medicated Pads 40/Jar) 1 pad TOP ASDIRECTED PRN PRN Reason: comfort care Last Admin: 08/29/21 06:09 Dose: 1 tub Documented by: Discontinued Medications Ampicillin Sodium (Ampicillin 1 Gm Vial) Confirm Administered Dose 1 gm .ROUTE .STK-MED ONE Stop: 08/28/21 22:40 Ampicillin Sodium 2 gm/ Sodium (Chloride) 100 mls @ 200 mls/hr IV ONETIME ONE Stop: 08/28/21 16:29 Last Admin: 08/28/21 16:09 Dose: 200 mls/hr Documented by: Ropivacaine (Naropin 0.2%) Confirm Administered Dose 200 mls @ as directed .ROUTE .STK-MED ONE Stop: 08/28/21 15:56 Last Admin: 08/28/21 17:02 Dose: Not Given Documented by: Morphine Sulfate (Morphine 2 Mg/Ml Syringe) 2 mg IVPUSH ONETIME ONE Stop: 08/29/21 04:00 Last Admin: 08/29/21 04:40 Dose: 2 mg Documented by: - Infant Interaction Disposition, : [place] in Room with Family Infant Interaction: Holding Infant Infant Feeding: Breastfed Infant; Nursed Well Support Person: Mother, Significant Other - Recovery Exam Fundal Tone: Firm Fundal Level: 1 Fingerbreadths Below Umbilicus Fundal Placement: Midline Lochia Amount: Scant Lochia Color: Rubra/Red Perineum Description: Intact, Minimal Bruising/Swelling, Other (see below) Other Perinuem Description: 2nd degree laceration Episiotomy/Laceration: Approximated Bladder Status: Voiding - Exam General: Alert Lungs: Normal Respiratory Effort Cardiovascular: Regular Rate GI/Abdominal Exam: Soft, Non-Tender Extremities: Normal Range of Motion, Non-Tender Skin: Warm, Dry, Intact Neurological: No New Focal Deficit Psy/Mental Status: Normal Mood - Problem List Review Problem List Initiated/Reviewed/Updated: Yes - Assessment Assessment:: 25 year old G1 now P1 PPD1 s/p at 40w5d - Plan Plan:: Routine cares * A positive, rubella immune * GBS positive, s/p IV Ampicillin x3 doses * Mild range BP x2 this AM, asymptomatic. Will continue to monitor this morning and discharge later today if able per patient request. * PO pain medication ordered PRN * Regular diet as tolerated * Encourage ambulation and fluid intake when able * Plans to breastfeed, nursing assistance as needed Hypothyroidism * Continue levothyroxine 50mcg daily Dispo: stable. Anticipate discharge today pending maternal/infant status. Discharge instructions reviewed. patient to follow up at [facility] in 4 weeks for PPV.
[2021-08-30 15:05] LABS: BLOOD UREA NITROGEN,BUN 8 mg/dL (7.0-18.0); CARBON DIOXIDE,CO2 25.2 mmol/L (21.0-32.0); CHLORIDE,CL 104 mmol/L (98-107); GLUCOSE RANDOM 105 mg/dL (74-106); POTASSIUM,K 3.7 mmol/L (3.5-5.1); SODIUM,NA 139 mmol/L (136-145)
[2021-08-31 01:08] LABS: BLOOD UREA NITROGEN,BUN 8 mg/dL (7.0-18.0); CARBON DIOXIDE,CO2 28.6 mmol/L (21.0-32.0); CHLORIDE,CL 103 mmol/L (98-107); GLUCOSE RANDOM 80 mg/dL (74-106); POTASSIUM,K 4.2 mmol/L (3.5-5.1); SODIUM,NA 141 mmol/L (136-145)
[2021-08-31] MEDS ORDERED: Sodium Chloride 0.9% 2.5 ML Syringe FLUSH PRN (08:38)
[2021-08-31] MEDS ORDERED: Sodium Chloride 0.9% 10 ML Syringe FLUSH PRN (08:38)
[2021-08-31] MEDS ORDERED: Sodium Chloride 0.9% 10 ML SDV IV PRN (08:38)
[2021-08-31] MEDS ORDERED: Calcium Gluconate 10% 1 GM/10 ML SDV IV PRN (08:38)
[2021-08-31] MEDS ORDERED: Magnesium Sulfate/Water 4 GM in Premix Bag 1 BAG IV ONE (08:38)
--- NOTE | 2021-08-31 08:38 | PCM.PNPP ---
- General Info Date of Service: 08/31/21 Functional Status: Reports: Pain Controlled, Tolerating Diet, Ambulating, Urinating - Review of Systems General: Reports: No Symptoms HEENT: Reports: No Symptoms Pulmonary: Reports: No Symptoms Cardiovascular: Reports: No Symptoms Gastrointestinal: Reports: No Symptoms Genitourinary: Reports: No Symptoms Musculoskeletal: Reports: No Symptoms Skin: Reports: No Symptoms Neurological: Reports: No Symptoms Psychiatric: Reports: No Symptoms - Patient Data Vital Signs - Most Recent: Last Vital Signs Temp 35.9 C L 08/31/21 08:00 Pulse 82 08/31/21 08:00 Resp 16 08/31/21 08:00 BP 120/75 08/31/21 08:00 Pulse Ox 97 08/31/21 08:00 Weight - Most Recent: 159 lb Lab Results - Last 24 Hours: Laboratory Results - last 24 hr 08/30/21 08/30/21 08/31/21 Range/Units 14:26 14:26 00:30 WBC 11.74 H 11.65 H (4.0-11.0) K/uL RBC 3.52 L 3.40 L (4.30-5.90) M/uL Hgb 11.2 L 10.7 L (12.0-16.0) g/dL Hct 32.0 L 31.7 L (36.0-46.0) % MCV 90.9 93.2 (80.0-98.0) fL MCH 31.8 31.5 (27.0-32.0) pg MCHC 35.0 33.8 (31.0-37.0) g/dL RDW Std Deviation 45.2 43.8 (28.0-62.0) fl RDW Coeff of Jacobo 14 13 (11.0-15.0) % Plt Count 159 164 (150-400) K/uL MPV 11.50 11.20 (7.40-12.00) fL Nucleated RBC % 0.0 /100WBC Nucleated RBCs # 0 K/uL Sodium 139 (136-145) mmol/L Potassium 3.7 (3.5-5.1) mmol/L Chloride 104 (98-107) mmol/L Carbon Dioxide 25.2 (21.0-32.0) mmol/L BUN 8 (7.0-18.0) mg/dL Creatinine 0.5 L (0.6-1.0) mg/dL Est Cr Clr Drug Dosing 170.17 mL/min Estimated GFR (MDRD) > 60.0 ml/min Glucose 105 (74-106) mg/dL Uric Acid 6.7 (2.6-7.2) mg/dL Calcium 7.9 L (8.5-10.1) mg/dL Total Bilirubin 0.4 (0.2-1.0) mg/dL AST 196 H (15-37) IU/L ALT 147 H (14-63) IU/L Alkaline Phosphatase 141 H (46-116) U/L Lactate Dehydrogenase 285 H (81-234) U/L Total Protein 6.1 L (6.4-8.2) g/dL Albumin 2.3 L (3.4-5.0) g/dL Globulin 3.8 (2.6-4.0) g/dL Albumin/Globulin Ratio 0.6 L (0.9-1.6) 08/31/ Range/Units 00:30 WBC (4.0-11.0) K/uL RBC (4.30-5.90) M/uL Hgb (12.0-16.0) g/dL Hct (36.0-46.0) % MCV (80.0-98.0) fL MCH (27.0-32.0) pg MCHC (31.0-37.0) g/dL RDW Std Deviation (28.0-62.0) fl RDW Coeff of Jacobo (11.0-15.0) % Plt Count (150-400) K/uL MPV (7.40-12.00) fL Nucleated RBC % /100WBC Nucleated RBCs # K/uL Sodium 141 (136-145) mmol/L Potassium 4.2 (3.5-5.1) mmol/L Chloride 103 (98-107) mmol/L Carbon Dioxide 28.6 (21.0-32.0) mmol/L BUN 8 (7.0-18.0) mg/dL Creatinine 0.6 (0.6-1.0) mg/dL Est Cr Clr Drug Dosing 141.81 mL/min Estimated GFR (MDRD) > 60.0 ml/min Glucose 80 (74-106) mg/dL Uric Acid 6.1 (2.6-7.2) mg/dL Calcium 8.3 L (8.5-10.1) mg/dL Total Bilirubin 0.3 (0.2-1.0) mg/dL AST 247 H (15-37) IU/L ALT 218 H (14-63) IU/L Alkaline Phosphatase 131 H (46-116) U/L Lactate Dehydrogenase 268 H (81-234) U/L Total Protein 5.9 L (6.4-8.2) g/dL Albumin 2.1 L (3.4-5.0) g/dL Globulin 3.8 (2.6-4.0) g/dL Albumin/Globulin Ratio 0.6 L (0.9-1.6) Med Orders - Current: Current Medications Acetaminophen (Acetaminophen 500 Mg Tab) 500 mg PO Q4H PRN PRN Reason: Pain (mild 1-3) Acetaminophen (Acetaminophen 500 Mg Tab) 1,000 mg PO Q4H PRN PRN Reason: Pain (mild 1-3) Benzocaine/Menthol (Benzocaine/Menthol 20%-0.5% [place] 78 Gm Cannister) 78 gm TOP ASDIRECTED PRN PRN Reason: Perineal Comfort Measure Last Admin: 08/29/21 06:09 Dose: 1 canister Documented by: Bisacodyl (Bisacodyl 10 Mg Supp) 10 mg RECTAL ONETIME PRN PRN Reason: Constipation Butorphanol Tartrate (Butorphanol 1 Mg/Ml Sdv) 1 mg IVPUSH Q1H PRN PRN Reason: Pain (severe 7-10) Carboprost Tromethamine (Carboprost Tromethamine 250 Mcg/1 Ml Amp) 250 mcg IM ASDIRECTED PRN PRN Reason: Post Hemorrhage Docusate Sodium (Docusate Sodium 100 Mg Cap) 100 mg PO Q12H PRN PRN Reason: Constipation Last Admin: 08/30/21 21:04 Dose: 100 mg Documented by: Emollient Ointment (Lanolin 100% Cream 7 Gm Tube) 0 gm TOP ASDIRECTED PRN PRN Reason: Sore Nipples Last Admin: 08/29/21 06:10 Dose: 1 tube Documented by: Ephedrine Sulfate (Ephedrine 50 Mg/Ml Sdv) 10 mg IVPUSH Q1M PRN PRN Reason: Hypotension Ephedrine Sulfate (Ephedrine 50 Mg/Ml Sdv) 10 mg IVPUSH Q5M PRN PRN Reason: Hypotension Oxytocin/Sodium Chloride (Oxytocin 30 Unit In Ns 0.9% 500 Ml Premix) 30 unit in 500 mls @ 500 mls/hr IV TITRATE SERAFIN Tranexamic Acid 1,000 mg/ (Sodium Chloride) 110 mls @ 660 mls/hr IV ONETIME PRN PRN Reason: Bleeding Lactated Ringer's (Ringers, Lactated) 1,000 mls @ 150 mls/hr IV ASDIRECTED SERAFIN Last Admin: 08/29/21 00:05 Dose: 150 mls/hr Documented by: Oxytocin/Sodium Chloride (Oxytocin 30 Unit In Ns 0.9% 500 Ml Premix) 30 unit in 500 mls @ 2 mls/hr IV TITRATE SERAFIN; Protocol Last Infusion: 08/29/21 01:35 Dose: 6 munits/min, 6 mls/hr Documented by: Ibuprofen (Ibuprofen 400 Mg Tab) 400 mg PO Q4H PRN PRN Reason: Pain (mild 1-3) Ibuprofen (Ibuprofen 800 Mg Tab) 800 mg PO Q6H PRN PRN Reason: Cramping Lidocaine HCl (Lidocaine 1% 50 Ml Mdv) 50 ml INJECT ONETIME PRN PRN Reason: Laceration repair Last Admin: 08/29/21 04:01 Dose: 50 ml Documented by: Methylergonovine Maleate (Methylergonovine 0.2 Mg/1 Ml Amp) 0.2 mg IM ASDIRECTED PRN PRN Reason: Post Hemorrhage Miscellaneous Medication (Phenylephrine Hcl In 0.9% Nacl 1 Mg/10 Ml Syringe) 0.1 mg IVPUSH Q1M PRN PRN Reason: Hypotension Misoprostol (Misoprostol 200 Mcg Tab) 200 mcg PO ONETIME PRN PRN Reason: Post Hemorrhage Nalbuphine HCl (Nalbuphine 10 Mg/1 Ml Vial) 10 mg IVPUSH Q1H PRN PRN Reason: Pain (severe 7-10) Ondansetron HCl (Ondansetron 4 Mg/2 Ml Sdv) 4 mg IVPUSH Q6H PRN PRN Reason: Nausea/Vomiting Last Admin: 08/28/21 20:16 Dose: 4 mg Documented by: Oxycodone HCl (Oxycodone 5 Mg Tab) 5 mg PO Q2H PRN PRN Reason: Pain (severe 7-10) Ropivacaine (Ropivacaine 0.2% 2mg/Ml 200 Ml Bag) 400 mg EPIDUR ASDIRECTED SERAFIN Sodium Chloride (Sodium Chloride 0.9% 10 Ml Syringe) 10 ml FLUSH ASDIRECTED PRN PRN Reason: Keep Vein Open Sodium Chloride (Sodium Chloride 0.9% 2.5 Ml Syringe) 2.5 ml FLUSH ASDIRECTED PRN PRN Reason: Keep Vein Open Sodium Chloride (Sodium Chloride 0.9% 10 Ml Sdv) 10 ml IV ASDIRECTED PRN PRN Reason: IV Use Sterile Water (Water For Irrigation,Sterile 1,000 Ml Container) 1,000 ml IRR ASDIRECTED PRN PRN Reason: delivery Witch Kyra (Witch Kyra Medicated Pads 40/Jar) 1 pad TOP ASDIRECTED PRN PRN Reason: comfort care Last Admin: 08/29/21 06:09 Dose: 1 tub Documented by: Discontinued Medications Ampicillin Sodium (Ampicillin 1 Gm Vial) Confirm Administered Dose 1 gm .ROUTE .STK-MED ONE Stop: 08/28/21 22:40 Ampicillin Sodium 2 gm/ Sodium (Chloride) 100 mls @ 200 mls/hr IV ONETIME ONE Stop: 08/28/21 16:29 Last Admin: 08/28/21 16:09 Dose: 200 mls/hr Documented by: Ampicillin Sodium 1 gm/ Sodium (Chloride) 50 mls @ 100 mls/hr IV Q4H [facility] Last Admin: 08/29/21 00:05 Dose: 100 mls/hr Documented by: Ropivacaine (Naropin 0.2%) Confirm Administered Dose 200 mls @ as directed .ROUTE .STK-MED ONE Stop: 08/28/21 15:56 Last Admin: 08/28/21 17:02 Dose: Not Given Documented by: Morphine Sulfate (Morphine 2 Mg/Ml Syringe) 2 mg IVPUSH ONETIME ONE Stop: 08/29/21 04:00 Last Admin: 08/29/21 04:40 Dose: 2 mg Documented by: - Infant Interaction Disposition, : in Room with Family Infant Interaction: Holding Infant Feeding: Breastfed Infant; Nursed Well Support Person: Mother, Significant Other - Recovery Exam Fundal Tone: Firm Fundal Level: 1 Fingerbreadths Below Umbilicus Fundal Placement: Midline Lochia Amount: Scant Lochia Color: Rubra/Red Perineum Description: Intact, Minimal Bruising/Swelling, Other (see below) Other Perinuem Description: 2nd degree lac Episiotomy/Laceration: Approximated Bladder Status: Voiding Urinary Elimination: Voided - Exam General: Alert, Oriented, Cooperative, No Acute Distress HEENT: Pupils Equal, Pupils Reactive, EOMI Neck: Supple, Trachea Midline, No JVD Lungs: Clear to Auscultation, Normal Respiratory Effort Cardiovascular: Regular Rate, Regular Rhythm, No Murmurs GI/Abdominal Exam: Normal Bowel Sounds, Soft, Non-Tender, No Distention Extremities: Normal Inspection, Normal Range of Motion, Non-Tender, No Pedal Edema Skin: Warm, Dry, Intact Neurological: No New Focal Deficit Psy/Mental Status: Alert, Normal Affect, Normal Mood - Problem List Review Problem List Initiated/Reviewed/Updated: Yes - Assessment Assessment:: 25 year old G1 now P1 PPD2 s/p at 40w5d - Plan Plan:: Preeclampsia with severe fetatures * mild range BPs yesterday, normal today. * Increasing LFTs, trending up from yesterday, denies any symptoms * will start magnesium sulfate for preeclampsia with severe features * monitor I&Os, labs q6hr Routine cares * A positive, rubella immune * GBS positive, s/p IV Ampicillin x3 doses * PO pain medication ordered PRN * Regular diet as tolerated * Encourage ambulation and fluid intake when able * Plans to breastfeed, nursing assistance as needed Hypothyroidism * Continue levothyroxine 50mcg daily Dispo: Plan for 24hr of magnesium sulfate, will monitor status and labs closely
[2021-08-31 09:11] LABS: BLOOD UREA NITROGEN,BUN 10 mg/dL (7.0-18.0); CARBON DIOXIDE,CO2 25.5 mmol/L (21.0-32.0); CHLORIDE,CL 105 mmol/L (98-107); GLUCOSE RANDOM 87 mg/dL (74-106); SODIUM,NA 139 mmol/L (136-145)
[2021-08-31] MEDS ORDERED: Sodium Chloride 0.9% 1,000 ML IV SCH (10:00)
[2021-08-31] MEDS: Magnesium Sulfate/Water 20 GM/500 ML BAG IV SCH ×2 (10:35→20:12)
[2021-08-31 15:22] LABS: BLOOD UREA NITROGEN,BUN 8 mg/dL (7.0-18.0); CARBON DIOXIDE,CO2 26.4 mmol/L (21.0-32.0); CHLORIDE,CL 103 mmol/L (98-107); GLUCOSE RANDOM 87 mg/dL (74-106); POTASSIUM,K 3.8 mmol/L (3.5-5.1); SODIUM,NA 138 mmol/L (136-145)
[2021-08-31 21:03] LABS: BLOOD UREA NITROGEN,BUN 9 mg/dL (7.0-18.0); CARBON DIOXIDE,CO2 25.9 mmol/L (21.0-32.0); CHLORIDE,CL 102 mmol/L (98-107); GLUCOSE RANDOM 99 mg/dL (74-106); SODIUM,NA 137 mmol/L (136-145)
[2021-09-01 02:39] LABS: BLOOD UREA NITROGEN,BUN 9 mg/dL (7.0-18.0); CARBON DIOXIDE,CO2 25.4 mmol/L (21.0-32.0); CHLORIDE,CL 101 mmol/L (98-107); GLUCOSE RANDOM 101 mg/dL (74-106); POTASSIUM,K 3.7 mmol/L (3.5-5.1); SODIUM,NA 136 mmol/L (136-145)
[2021-09-01] MEDS: Magnesium Sulfate/Water 20 GM/500 ML BAG IV SCH (06:13)
[2021-09-01] MEDS ORDERED: Calcium Carbonate 500 MG Tab.Chew PO PRN (07:07)
--- NOTE | 2021-09-01 08:08 | PCM.DCSUM1 ---
Discharge Summary - Hospital Course HPI Initial Comments: 25yo at 40w4d presented with spontaneous labor. Patient admitted and received ampicillin for GBS prophylaxis. She progressed and had uncomplicated . Diagnosis: Stroke: No - Discharge Data Discharge Date: 09/03/21 Discharge Disposition: Home, Self-Care 01 Condition: Good - Referral to Home Health Primary Care Physician: PCP None - Discharge Diagnosis/Problem(s) (1) Pre-eclampsia affecting puerperium SNOMED Code(s): 787435207, [id number], [id number] ICD Code: O14.95 - UNSPECIFIED PRE-ECLAMPSIA, COMPLICATING THE PUERPERIUM Status: Acute Current Visit: Yes - Patient Summary/Data Operative Procedure(s) Performed: Labs Pending at D/C: Repeat CBC and CMP in 2 days. Viral and autoimmune hepatitis panel pending. Hospital Course: On PPD1, she was noted to have mildly elevated BPs, 140s/90s. She was asymptomatic. Preeclampsia labs were done which showed elevated LFTs, otherwise was normal. She was monitored and repeat labs showed increasing LFTs. She was started on magnesium sulfate for presumed preeclampsia with severe features. Her BP was mostly normotensive and continues to be asymptomatic, but LFT continues to increase slowly. Magnesium sulfate was stopped after 30 hours. Discussed case with MFM and internal medicine, recommendation to evaluate for other causes of hepatitis. Normal coagulation panel. Viral hepatitis and autoimmune hepatitis panel sent. RUQ ultrasound obtained. - Patient Instructions Diet: Regular Diet as Tolerated Activity: No Strenuous Activities Driving: May Drive Today Showering/Bathing: May Shower Notify Provider of: Fever, Increased Pain, Swelling and Redness, Nausea and/or Vomiting Other/Special Instructions: Notify clinic with temperature >101, intractable nausea/vomiting, severe pain not controlled by PO medications or heavy vaginal bleeding. Nothing in the for 6 weeks. Monitor BP daily at home, call with >150/100, persistent headaches, shortness of breath, chest pain, upper abdominal pain, visual changes, worsening swelling - Discharge Plan *PRESCRIPTION DRUG MONITORING PROGRAM REVIEWED*: Not Applicable *COPY OF PRESCRIPTION DRUG MONITORING REPORT IN PATIENT ASHLEY: Not Applicable Home Medications: Home Meds Levothyroxine [Synthroid] 50 mcg PO DAILY 11/24/15 [History] Ibuprofen [Motrin] 800 mg PO Q6H PRN tablet 09/01/21 [Rx] Patient Handouts: Steps to Quit Smoking, [id number], Baby Blues, Hypertension, Care After Vaginal Delivery Referrals: Wong Fair MD [Physician] - 10/06/21 1:15 pm (You may bring your with to your appointment. Bring insurance and ID cards with. Masks are required.) - Discharge Summary/Plan Comment DC Time >30 min.: No Total # of Minutes for Discharge Time: 20 - Patient Data Vitals - Most Recent: Last Vital Signs Temp 36.1 C 09/01/21 04:00 Pulse 79 09/01/21 04:00 Resp 16 09/01/21 04:00 BP 123/74 09/01/21 04:00 Pulse Ox 97 09/01/21 04:00 Weight - Most Recent: 146 lb 13.246 oz I&O - Last 24 hours: Intake & Output 08/31/21 09/01/21 09/01/21 22:59 06:59 14:59 Intake Total 725 950 Output Total 2550 1300 Balance -1825 -350 Lab Results - Last 24 hrs: Laboratory Results - last 24 hr 08/28/21 08/31/21 08/31/21 Range/Units 15:45 08:32 08:33 WBC 12.19 H (4.0-11.0) K/uL RBC 3.72 L (4.30-5.90) M/uL Hgb 11.6 L (12.0-16.0) g/dL Hct 34.0 L (36.0-46.0) % MCV 91.4 (80.0-98.0) fL MCH 31.2 (27.0-32.0) pg MCHC 34.1 (31.0-37.0) g/dL RDW Std Deviation 44.8 (28.0-62.0) fl RDW Coeff of Jacobo 14 (11.0-15.0) % Plt Count 175 (150-400) K/uL MPV 11.50 (7.40-12.00) fL Nucleated RBC % 0.0 /100WBC Nucleated RBCs # 0 K/uL Sodium (136-145) mmol/L Potassium (3.5-5.1) mmol/L Chloride (98-107) mmol/L Carbon Dioxide (21.0-32.0) mmol/L BUN (7.0-18.0) mg/dL Creatinine (0.6-1.0) mg/dL Est Cr Clr Drug Dosing mL/min Estimated GFR (MDRD) ml/min Glucose (74-106) mg/dL Uric Acid 6.2 (2.6-7.2) mg/dL Calcium (8.5-10.1) mg/dL Magnesium (1.8-2.4) mg/dL Total Bilirubin (0.2-1.0) mg/dL AST (15-37) IU/L ALT (14-63) IU/L Alkaline Phosphatase (46-116) U/L Total Protein (6.4-8.2) g/dL Albumin (3.4-5.0) g/dL Globulin (2.6-4.0) g/dL Albumin/Globulin Ratio (0.9-1.6) RPR Non-Reac (Non-Reac) 08/31/21 08/31/21 08/31/21 Range/Units 08:33 14:25 14:25 WBC 12.15 H (4.0-11.0) K/uL RBC 3.74 L (4.30-5.90) M/uL Hgb 12.0 (12.0-16.0) g/dL Hct 34.2 L (36.0-46.0) % MCV 91.4 (80.0-98.0) fL MCH 32.1 H (27.0-32.0) pg MCHC 35.1 (31.0-37.0) g/dL RDW Std Deviation 45.1 (28.0-62.0) fl RDW Coeff of Jacobo 14 (11.0-15.0) % Plt Count 182 (150-400) K/uL MPV 11.30 (7.40-12.00) fL Nucleated RBC % 0.0 /100WBC Nucleated RBCs # 0 K/uL Sodium 139 138 (136-145) mmol/L Potassium 4.0 3.8 (3.5-5.1) mmol/L Chloride 105 103 (98-107) mmol/L Carbon Dioxide 25.5 26.4 (21.0-32.0) mmol/L BUN 10 8 (7.0-18.0) mg/dL Creatinine 0.6 0.5 L (0.6-1.0) mg/dL Est Cr Clr Drug Dosing 141.43 169.72 mL/min Estimated GFR (MDRD) > 60.0 > 60.0 ml/min Glucose 87 87 (74-106) mg/dL Uric Acid 6.3 (2.6-7.2) mg/dL Calcium 8.0 L 8.0 L (8.5-10.1) mg/dL Magnesium 5.2 H (1.8-2.4) mg/dL Total Bilirubin 0.5 0.5 (0.2-1.0) mg/dL AST 242 H 286 H (15-37) IU/L ALT 224 H 240 H (14-63) IU/L Alkaline Phosphatase 132 H 134 H (46-116) U/L Total Protein 6.1 L 6.5 (6.4-8.2) g/dL Albumin 2.3 L 2.5 L (3.4-5.0) g/dL Globulin 3.8 4.0 (2.6-4.0) g/dL Albumin/Globulin Ratio 0.6 L 0.6 L (0.9-1.6) RPR (Non-Reac) 08/31/21 08/31/21 09/01/21 Range/Units 20:07 20:07 02:10 WBC 12.30 H 11.79 H (4.0-11.0) K/uL RBC 3.85 L 3.79 L (4.30-5.90) M/uL Hgb 12.2 11.9 L (12.0-16.0) g/dL Hct 35.4 L 35.1 L (36.0-46.0) % MCV 91.9 92.6 (80.0-98.0) fL MCH 31.7 31.4 (27.0-32.0) pg MCHC 34.5 33.9 (31.0-37.0) g/dL RDW Std Deviation 45.4 43.8 (28.0-62.0) fl RDW Coeff of Jacobo 14 13 (11.0-15.0) % Plt Count 199 198 (150-400) K/uL MPV 11.20 10.40 (7.40-12.00) fL Nucleated RBC % 0.0 /100WBC Nucleated RBCs # 0 K/uL Sodium 137 (136-145) mmol/L Potassium 4.0 (3.5-5.1) mmol/L Chloride 102 (98-107) mmol/L Carbon Dioxide 25.9 (21.0-32.0) mmol/L BUN 9 (7.0-18.0) mg/dL Creatinine 0.5 L (0.6-1.0) mg/dL Est Cr Clr Drug Dosing 169.72 mL/min Estimated GFR (MDRD) > 60.0 ml/min Glucose 99 (74-106) mg/dL Uric Acid 5.8 (2.6-7.2) mg/dL Calcium 6.8 L (8.5-10.1) mg/dL Magnesium 5.1 H (1.8-2.4) mg/dL Total Bilirubin 0.5 (0.2-1.0) mg/dL AST 303 H (15-37) IU/L ALT 258 H (14-63) IU/L Alkaline Phosphatase 145 H (46-116) U/L Total Protein 6.5 (6.4-8.2) g/dL Albumin 2.6 L (3.4-5.0) g/dL Globulin 3.9 (2.6-4.0) g/dL Albumin/Globulin Ratio 0.7 L (0.9-1.6) RPR (Non-Reac) 09/01/21 Range/Units 02:10 WBC (4.0-11.0) K/uL RBC (4.30-5.90) M/uL Hgb (12.0-16.0) g/dL Hct (36.0-46.0) % MCV (80.0-98.0) fL MCH (27.0-32.0) pg MCHC (31.0-37.0) g/dL RDW Std Deviation (28.0-62.0) fl RDW Coeff of Jacobo (11.0-15.0) % Plt Count (150-400) K/uL MPV (7.40-12.00) fL Nucleated RBC % /100WBC Nucleated RBCs # K/uL Sodium 136 (136-145) mmol/L Potassium 3.7 (3.5-5.1) mmol/L Chloride 101 (98-107) mmol/L Carbon Dioxide 25.4 (21.0-32.0) mmol/L BUN 9 (7.0-18.0) mg/dL Creatinine 0.5 L (0.6-1.0) mg/dL Est Cr Clr Drug Dosing 169.72 mL/min Estimated GFR (MDRD) > 60.0 ml/min Glucose 101 (74-106) mg/dL Uric Acid 6.1 (2.6-7.2) mg/dL Calcium 6.5 L (8.5-10.1) mg/dL Magnesium 6.4 H (1.8-2.4) mg/dL Total Bilirubin 0.4 (0.2-1.0) mg/dL AST 298 H (15-37) IU/L ALT 237 H (14-63) IU/L Alkaline Phosphatase 138 H (46-116) U/L Total Protein 6.7 (6.4-8.2) g/dL Albumin 2.6 L (3.4-5.0) g/dL Globulin 4.1 H (2.6-4.0) g/dL Albumin/Globulin Ratio 0.6 L (0.9-1.6) RPR (Non-Reac) Med Orders - Current: Current Medications Acetaminophen (Acetaminophen 500 Mg Tab) 500 mg PO Q4H PRN PRN Reason: Pain (mild 1-3) Acetaminophen (Acetaminophen 500 Mg Tab) 1,000 mg PO Q4H PRN PRN Reason: Pain (mild 1-3) Benzocaine/Menthol (Benzocaine/Menthol 20%-0.5% [place] 78 Gm Cannister) 78 gm TOP ASDIRECTED PRN PRN Reason: Perineal Comfort Measure Last Admin: 08/29/21 06:09 Dose: 1 canister Documented by: Bisacodyl (Bisacodyl 10 Mg Supp) 10 mg RECTAL ONETIME PRN PRN Reason: Constipation Butorphanol Tartrate (Butorphanol 1 Mg/Ml Sdv) 1 mg IVPUSH Q1H PRN PRN Reason: Pain (severe 7-10) Calcium Carbonate/Glycine (Calcium Carbonate 500 Mg Tab.Chew) 1,000 mg PO Q2HR PRN PRN Reason: Other Calcium Gluconate (Calcium Gluconate 10% 1 Gm/10 Ml Sdv) 1 gm IV ASDIRECTED PRN PRN Reason: respiratory distress Carboprost Tromethamine (Carboprost Tromethamine 250 Mcg/1 Ml Amp) 250 mcg IM ASDIRECTED PRN PRN Reason: Post Hemorrhage Docusate Sodium (Docusate Sodium 100 Mg Cap) 100 mg PO Q12H PRN PRN Reason: Constipation Last Admin: 08/30/21 21:04 Dose: 100 mg Documented by: Emollient Ointment (Lanolin 100% Cream 7 Gm Tube) 0 gm TOP ASDIRECTED PRN PRN Reason: Sore Nipples Last Admin: 08/29/21 06:10 Dose: 1 tube Documented by: Ephedrine Sulfate (Ephedrine 50 Mg/Ml Sdv) 10 mg IVPUSH Q1M PRN PRN Reason: Hypotension Ephedrine Sulfate (Ephedrine 50 Mg/Ml Sdv) 10 mg IVPUSH Q5M PRN PRN Reason: Hypotension Oxytocin/Sodium Chloride (Oxytocin 30 Unit In Ns 0.9% 500 Ml Premix) 30 unit in 500 mls @ 500 mls/hr IV TITRATE SERAFIN Tranexamic Acid 1,000 mg/ (Sodium Chloride) 110 mls @ 660 mls/hr IV ONETIME PRN PRN Reason: Bleeding Lactated Ringer's (Ringers, Lactated) 1,000 mls @ 150 mls/hr IV ASDIRECTED SERAFIN Last Admin: 08/29/21 00:05 Dose: 150 mls/hr Documented by: Oxytocin/Sodium Chloride (Oxytocin 30 Unit In Ns 0.9% 500 Ml Premix) 30 unit in 500 mls @ 2 mls/hr IV TITRATE SERAFIN; Protocol Last Infusion: 08/29/21 01:35 Dose: 6 munits/min, 6 mls/hr Documented by: Magnesium Sulfate (Magnesium Sulfate In Water 20 Gm/500 Ml) 20 gm in 500 mls @ 50 mls/hr IV ASDIRECTED SERAFIN; Protocol Last Admin: 09/01/21 06:13 Dose: 2 gm/hr, 50 mls/hr Documented by: Sodium Chloride (Normal Saline) 1,000 mls @ 5 mls/hr IV ASDIRECTED SERAFIN Ibuprofen (Ibuprofen 400 Mg Tab) 400 mg PO Q4H PRN PRN Reason: Pain (mild 1-3) Ibuprofen (Ibuprofen 800 Mg Tab) 800 mg PO Q6H PRN PRN Reason: Cramping Lidocaine HCl (Lidocaine 1% 50 Ml Mdv) 50 ml INJECT ONETIME PRN PRN Reason: Laceration repair Last Admin: 08/29/21 04:01 Dose: 50 ml Documented by: Methylergonovine Maleate (Methylergonovine 0.2 Mg/1 Ml Amp) 0.2 mg IM ASDI RECTED PRN PRN Reason: Post Hemorrhage Miscellaneous Medication (Phenylephrine Hcl In 0.9% Nacl 1 Mg/10 Ml Syringe) 0.1 mg IVPUSH Q1M PRN PRN Reason: Hypotension Misoprostol (Misoprostol 200 Mcg Tab) 200 mcg PO ONETIME PRN PRN Reason: Post Hemorrhage Nalbuphine HCl (Nalbuphine 10 Mg/1 Ml Vial) 10 mg IVPUSH Q1H PRN PRN Reason: Pain (severe 7-10) Ondansetron HCl (Ondansetron 4 Mg/2 Ml Sdv) 4 mg IVPUSH Q6H PRN PRN Reason: Nausea/Vomiting Last Admin: 08/28/21 20:16 Dose: 4 mg Documented by: Oxycodone HCl (Oxycodone 5 Mg Tab) 5 mg PO Q2H PRN PRN Reason: Pain (severe 7-10) Ropivacaine (Ropivacaine 0.2% 2mg/Ml 200 Ml Bag) 400 mg EPIDUR ASDIRECTED SERAFIN Sodium Chloride (Sodium Chloride 0.9% 10 Ml Syringe) 10 ml FLUSH ASDIRECTED PRN PRN Reason: Keep Vein Open Sodium Chloride (Sodium Chloride 0.9% 2.5 Ml Syringe) 2.5 ml FLUSH ASDIRECTED PRN PRN Reason: Keep Vein Open Sodium Chloride (Sodium Chloride 0.9% 10 Ml Sdv) 10 ml IV ASDIRECTED PRN PRN Reason: IV Use Sodium Chloride (Sodium Chloride 0.9% 10 Ml Syringe) 10 ml FLUSH ASDIRECTED PRN PRN Reason: Keep Vein Open Sodium Chloride (Sodium Chloride 0.9% 2.5 Ml Syringe) 2.5 ml FLUSH ASDIRECTED PRN PRN Reason: Keep Vein Open Sodium Chloride (Sodium Chloride 0.9% 10 Ml Sdv) 10 ml IV ASDIRECTED PRN PRN Reason: IV Use Sterile Water (Water For Irrigation,Sterile 1,000 Ml Container) 1,000 ml IRR ASDIRECTED PRN PRN Reason: delivery Witch Kyra (Witch Kyra Medicated Pads 40/Jar) 1 pad TOP ASDIRECTED PRN PRN Reason: comfort care Last Admin: 08/29/21 06:09 Dose: 1 tub Documented by: Discontinued Medications Ampicillin Sodium (Ampicillin 1 Gm Vial) Confirm Administered Dose 1 gm .ROUTE .STK-MED ONE Stop: 08/28/21 22:40 Ampicillin Sodium 2 gm/ Sodium (Chloride) 100 mls @ 200 mls/hr IV ONETIME ONE Stop: 08/28/21 16:29 Last Admin: 08/28/21 16:09 Dose: 200 mls/hr Documented by: Ampicillin Sodium 1 gm/ Sodium (Chloride) 50 mls @ 100 mls/hr IV Q4H SERAFIN Last Admin: 08/29/21 00:05 Dose: 100 mls/hr Documented by: Ropivacaine (Naropin 0.2%) Confirm Administered Dose 200 mls @ as directed .ROUTE .STK-MED ONE Stop: 08/28/21 15:56 Last Admin: 08/28/21 17:02 Dose: Not Given Documented by: Magnesium Sulfate 4 gm/ Premix 100 mls @ 300 mls/hr IV BOLUS ONE Stop: 08/31/21 08:57 Last Admin: 08/31/21 10:05 Dose: 300 mls/hr Documented by: Morphine Sulfate (Morphine 2 Mg/Ml Syringe) 2 mg IVPUSH ONETIME ONE Stop: 08/29/21 04:00 Last Admin: 08/29/21 04:40 Dose: 2 mg Documented by:
[2021-09-01 08:50] LABS: BLOOD UREA NITROGEN,BUN 8 mg/dL (7.0-18.0); CARBON DIOXIDE,CO2 24.3 mmol/L (21.0-32.0); CHLORIDE,CL 100 mmol/L (98-107); GLUCOSE RANDOM 95 mg/dL (74-106); POTASSIUM,K 3.6 mmol/L (3.5-5.1); SODIUM,NA 135 mmol/L (136-145)
[2021-09-01] MEDS ORDERED: Calcium Carbonate 500 MG Tab.Chew PO ONE (09:16)
[2021-09-01 15:18] LABS: BLOOD UREA NITROGEN,BUN 8 mg/dL (7.0-18.0); CARBON DIOXIDE,CO2 26.5 mmol/L (21.0-32.0); CHLORIDE,CL 100 mmol/L (98-107); GLUCOSE RANDOM 97 mg/dL (74-106); LIPASE 151 U/L (73-393); SODIUM,NA 135 mmol/L (136-145)
[2021-09-01 20:49] LABS: BLOOD UREA NITROGEN,BUN 8 mg/dL (7.0-18.0); CARBON DIOXIDE,CO2 27.2 mmol/L (21.0-32.0); CHLORIDE,CL 100 mmol/L (98-107); GLUCOSE RANDOM 115 mg/dL (74-106); POTASSIUM,K 3.8 mmol/L (3.5-5.1); SODIUM,NA 135 mmol/L (136-145)
[2021-09-01] MEDS ORDERED: Calcium Carbonate 500 MG Tab.Chew PO SCH (21:00)
[2021-09-02 06:19] LABS: BLOOD UREA NITROGEN,BUN 11 mg/dL (7.0-18.0); CARBON DIOXIDE,CO2 25.3 mmol/L (21.0-32.0); CHLORIDE,CL 101 mmol/L (98-107); GLUCOSE RANDOM 118 mg/dL (74-106); POTASSIUM,K 3.7 mmol/L (3.5-5.1); SODIUM,NA 136 mmol/L (136-145)
[2021-09-02 09:03] VITALS: BP 136/88; PULSE 82
--- NOTE | 2021-09-02 10:43 | PCM.PNPP ---
- General Info Date of Service: 09/02/21 Functional Status: Reports: Pain Controlled, Tolerating Diet, Ambulating, Urinating - Review of Systems General: Reports: No Symptoms HEENT: Reports: No Symptoms Pulmonary: Reports: No Symptoms Cardiovascular: Reports: No Symptoms Gastrointestinal: Reports: No Symptoms Genitourinary: Reports: No Symptoms Musculoskeletal: Reports: No Symptoms Skin: Reports: No Symptoms Neurological: Reports: No Symptoms Psychiatric: Reports: No Symptoms - Patient Data Vital Signs - Most Recent: Last Vital Signs Temp 36.4 C 09/02/21 09:00 Pulse 82 09/02/21 09:00 Resp 18 09/02/21 09:00 BP 136/88 09/02/21 09:00 Pulse Ox 97 09/02/21 09:00 Weight - Most Recent: 146 lb 13.246 oz I&O - Last 24 Hours: Intake & Output 09/01/21 09/02/21 09/02/21 22:59 06:59 14:59 Intake Total 50 Output Total 1000 Balance -950 Lab Results - Last 24 Hours: Laboratory Results - last 24 hr 09/01/21 09/01/21 09/01/21 Range/Units 14:42 20:14 20:14 INR 0.88 APTT 22.9 (18.6-31.3) SEC Fibrinogen 396 (215-411) mg/dL Sodium 135 L 135 L (136-145) mmol/L Potassium 4.0 3.8 (3.5-5.1) mmol/L Chloride 100 100 (98-107) mmol/L Carbon Dioxide 26.5 27.2 (21.0-32.0) mmol/L BUN 8 8 (7.0-18.0) mg/dL Creatinine 0.5 L 0.6 (0.6-1.0) mg/dL Est Cr Clr Drug Dosing 169.72 141.43 mL/min Estimated GFR (MDRD) > 60.0 > 60.0 ml/min Glucose 97 115 H (74-106) mg/dL Calcium 6.4 L 6.7 L (8.5-10.1) mg/dL Total Bilirubin 0.5 0.5 (0.2-1.0) mg/dL AST 388 H 361 H (15-37) IU/L ALT 239 H 236 H (14-63) IU/L Alkaline Phosphatase 141 H 150 H (46-116) U/L Total Protein 6.6 7.5 (6.4-8.2) g/dL Albumin 2.7 L 2.9 L (3.4-5.0) g/dL Globulin 3.9 4.6 H (2.6-4.0) g/dL Albumin/Globulin Ratio 0.7 L 0.6 L (0.9-1.6) Amylase 8 L (25-115) U/L Lipase 151 (73-393) U/L 09/02/21 Range/Units 05:20 INR APTT (18.6-31.3) SEC Fibrinogen (215-411) mg/dL Sodium 136 (136-145) mmol/L Potassium 3.7 (3.5-5.1) mmol/L Chloride 101 (98-107) mmol/L Carbon Dioxide 25.3 (21.0-32.0) mmol/L BUN 11 (7.0-18.0) mg/dL Creatinine 0.6 (0.6-1.0) mg/dL Est Cr Clr Drug Dosing 141.43 mL/min Estimated GFR (MDRD) > 60.0 ml/min Glucose 118 H (74-106) mg/dL Calcium 8.1 L (8.5-10.1) mg/dL Total Bilirubin 0.3 (0.2-1.0) mg/dL AST 200 H (15-37) IU/L ALT 186 H (14-63) IU/L Alkaline Phosphatase 136 H (46-116) U/L Total Protein 6.6 (6.4-8.2) g/dL Albumin 2.7 L (3.4-5.0) g/dL Globulin 3.9 (2.6-4.0) g/dL Albumin/Globulin Ratio 0.7 L (0.9-1.6) Amylase (25-115) U/L Lipase (73-393) U/L Med Orders - Current: Current Medications Benzocaine/Menthol (Benzocaine/Menthol 20%-0.5% [place] 78 Gm Cannister) 78 gm TOP ASDIRECTED PRN PRN Reason: Perineal Comfort Measure Last Admin: 08/29/21 06:09 Dose: 1 canister Documented by: Bisacodyl (Bisacodyl 10 Mg Supp) 10 mg RECTAL ONETIME PRN PRN Reason: Constipation Butorphanol Tartrate (Butorphanol 1 Mg/Ml Sdv) 1 mg IVPUSH Q1H PRN PRN Reason: Pain (severe 7-10) Calcium Carbonate/Glycine (Calcium Carbonate 500 Mg Tab.Chew) 1,000 mg PO Q2HR PRN PRN Reason: Other Calcium Carbonate/Glycine (Calcium Carbonate 500 Mg Tab.Chew) 1,000 mg PO BID SERAFIN Last Admin: 09/01/21 20:58 Dose: 1,000 mg Documented by: Calcium Gluconate (Calcium Gluconate 10% 1 Gm/10 Ml Sdv) 1 gm IV ASDIRECTED PRN PRN Reason: respiratory distress Carboprost Tromethamine (Carboprost Tromethamine 250 Mcg/1 Ml Amp) 250 mcg IM ASDIRECTED PRN PRN Reason: Post Hemorrhage Docusate Sodium (Docusate Sodium 100 Mg Cap) 100 mg PO Q12H PRN PRN Reason: Constipation Last Admin: 08/30/21 21:04 Dose: 100 mg Documented by: Emollient Ointment (Lanolin 100% Cream 7 Gm Tube) 0 gm TOP ASDIRECTED PRN PRN Reason: Sore Nipples Last Admin: 08/29/21 06:10 Dose: 1 tube Documented by: Ephedrine Sulfate (Ephedrine 50 Mg/Ml Sdv) 10 mg IVPUSH Q1M PRN PRN Reason: Hypotension Ephedrine Sulfate (Ephedrine 50 Mg/Ml Sdv) 10 mg IVPUSH Q5M PRN PRN Reason: Hypotension Oxytocin/Sodium Chloride (Oxytocin 30 Unit In Ns 0.9% 500 Ml Premix) 30 unit in 500 mls @ 500 mls/hr IV TITRATE SERAFIN Tranexamic Acid 1,000 mg/ (Sodium Chloride) 110 mls @ 660 mls/hr IV ONETIME PRN PRN Reason: Bleeding Lactated Ringer's (Ringers, Lactated) 1,000 mls @ 150 mls/hr IV ASDIRECTED SERAFIN Last Admin: 08/29/21 00:05 Dose: 150 mls/hr Documented by: Oxytocin/Sodium Chloride (Oxytocin 30 Unit In Ns 0.9% 500 Ml Premix) 30 unit in 500 mls @ 2 mls/hr IV TITRATE SERAFIN; Protocol Last Infusion: 08/29/21 01:35 Dose: 6 munits/min, 6 mls/hr Documented by: Magnesium Sulfate (Magnesium Sulfate In Water 20 Gm/500 Ml) 20 gm in 500 mls @ 50 mls/hr IV ASDIRECTED [facility]; Protocol Last Admin: 09/01/21 06:13 Dose: 2 gm/hr, 50 mls/hr Documented by: Sodium Chloride (Normal Saline) 1,000 mls @ 5 mls/hr IV ASDIRECTED SERAFIN Ibuprofen (Ibuprofen 400 Mg Tab) 400 mg PO Q4H PRN PRN Reason: Pain (mild 1-3) Ibuprofen (Ibuprofen 800 Mg Tab) 800 mg PO Q6H PRN PRN Reason: Cramping Lidocaine HCl (Lidocaine 1% 50 Ml Mdv) 50 ml INJECT ONETIME PRN PRN Reason: Laceration repair Last Admin: 08/29/21 04:01 Dose: 50 ml Documented by: Methylergonovine Maleate (Methylergonovine 0.2 Mg/1 Ml Amp) 0.2 mg IM ASDIRECTED PRN PRN Reason: Post Hemorrhage Miscellaneous Medication (Phenylephrine Hcl In 0.9% Nacl 1 Mg/10 Ml Syringe) 0.1 mg IVPUSH Q1M PRN PRN Reason: Hypotension Misoprostol (Misoprostol 200 Mcg Tab) 200 mcg PO ONETIME PRN PRN Reason: Post Hemorrhage Nalbuphine HCl (Nalbuphine 10 Mg/1 Ml Vial) 10 mg IVPUSH Q1H PRN PRN Reason: Pain (severe 7-10) Ondansetron HCl (Ondansetron 4 Mg/2 Ml Sdv) 4 mg IVPUSH Q6H PRN PRN Reason: Nausea/Vomiting Last Admin: 08/28/21 20:16 Dose: 4 mg Documented by: Ropivacaine (Ropivacaine 0.2% 2mg/Ml 200 Ml Bag) 400 mg EPIDUR ASDIRECTED SERAFIN Sodium Chloride (Sodium Chloride 0.9% 10 Ml Syringe) 10 ml FLUSH ASDIRECTED PRN PRN Reason: Keep Vein Open Sodium Chloride (Sodium Chloride 0.9% 2.5 Ml Syringe) 2.5 ml FLUSH ASDIRECTED PRN PRN Reason: Keep Vein Open Sodium Chloride (Sodium Chloride 0.9% 10 Ml Sdv) 10 ml IV ASDIRECTED PRN PRN Reason: IV Use Sodium Chloride (Sodium Chloride 0.9% 10 Ml Syringe) 10 ml FLUSH ASDIRECTED PRN PRN Reason: Keep Vein Open Sodium Chloride (Sodium Chloride 0.9% 2.5 Ml Syringe) 2.5 ml FLUSH ASDIRECTED PRN PRN Reason: Keep Vein Open Sodium Chloride (Sodium Chloride 0.9% 10 Ml Sdv) 10 ml IV ASDIRECTED PRN PRN Reason: IV Use Sterile Water (Water For Irrigation,Sterile 1,000 Ml Container) 1,000 ml IRR ASDIRECTED PRN PRN Reason: delivery Witch Kyra (Witch Kyra Medicated Pads 40/Jar) 1 pad TOP ASDIRECTED PRN PRN Reason: comfort care Last Admin: 08/29/21 06:09 Dose: 1 tub Documented by: Discontinued Medications Acetaminophen (Acetaminophen 500 Mg Tab) 500 mg PO Q4H PRN PRN Reason: Pain (mild 1-3) Acetaminophen (Acetaminophen 500 Mg Tab) 1,000 mg PO Q4H PRN PRN Reason: Pain (mild 1-3) Ampicillin Sodium (Ampicillin 1 Gm Vial) Confirm Administered Dose 1 gm .ROUTE .STK-MED ONE Stop: 08/28/21 22:40 Calcium Carbonate/Glycine (Calcium Carbonate 500 Mg Tab.Chew) 1,000 mg PO ONETIME ONE Stop: 09/01/21 09:17 Last Admin: 09/01/21 09:37 Dose: 1,000 mg Documented by: Ampicillin Sodium 2 gm/ Sodium (Chloride) 100 mls @ 200 mls/hr IV ONETIME ONE Stop: 08/28/21 16:29 Last Admin: 08/28/21 16:09 Dose: 200 mls/hr Documented by: Ampicillin Sodium 1 gm/ Sodium (Chloride) 50 mls @ 100 mls/hr IV Q4H SERAFIN Last Admin: 08/29/21 00:05 Dose: 100 mls/hr Documented by: Ropivacaine (Naropin 0.2%) Confirm Administered Dose 200 mls @ as directed .ROUTE .STK-MED ONE Stop: 08/28/21 15:56 Last Admin: 08/28/21 17:02 Dose: Not Given Documented by: Magnesium Sulfate 4 gm/ Premix 100 mls @ 300 mls/hr IV BOLUS ONE Stop: 08/31/21 08:57 Last Admin: 08/31/21 10:05 Dose: 300 mls/hr Documented by: Morphine Sulfate (Morphine 2 Mg/Ml Syringe) 2 mg IVPUSH ONETIME ONE Stop: 08/29/21 04:00 Last Admin: 08/29/21 04:40 Dose: 2 mg Documented by: Oxycodone HCl (Oxycodone 5 Mg Tab) 5 mg PO Q2H PRN PRN Reason: Pain (severe 7-10) - Interaction Disposition, : in Room with Family Infant Interaction: Holding Feeding: Breastfed Infant; Nursed Well Support Person: Mother, Significant Other - Recovery Exam Fundal Tone: Firm Fundal Level: 3 Fingerbreadths Below Umbilicus Fundal Placement: Midline Lochia Amount: None Lochia Color: Rubra/Red Perineum Description: Intact, Minimal Bruising/Swelling Other Perinuem Description: 2nd degree laceration Episiotomy/Laceration: Approximated Bladder Status: Voiding Urinary Elimination: Voided - Exam General: Alert, Oriented, Cooperative, No Acute Distress HEENT: Pupils Equal, Pupils Reactive, EOMI Neck: Supple, Trachea Midline, No JVD Lungs: Normal Respiratory Effort GI/Abdominal Exam: Soft, Non-Tender, No Distention Extremities: Normal Inspection, Normal Range of Motion, Non-Tender, No Pedal Edema Skin: Warm, Dry, Intact Neurological: No New Focal Deficit Psy/Mental Status: Alert, Normal Affect, Normal Mood - Problem List & Annotations (1) Pre-eclampsia affecting puerperium SNOMED Code(s): 798934469, 687797401, 706893339 Code(s): O14.95 - UNSPECIFIED PRE-ECLAMPSIA, COMPLICATING THE PUERPERIUM Status: Acute Current Visit: Yes - Problem List Review Problem List Initiated/Reviewed/Updated: Yes - My Orders Last 24 Hours: My Active Orders 09/01/21 14:42 HEPATITIS PANEL (4) [REF] Routine 09/01/21 18:25 Gallbladder [Abdomen Ltd] [US] Routine 09/01/21 20:14 ACTIN (SMOOTH MUSCLE) AB [REF] Routine MIO W/REFLEX [REF] Routine ANCA PANEL [REF] Routine ANTI-DNA (DS) AB QN [REF] Routine BILE ACIDS [REF] Routine MITOCHONDRIAL (M2) ANTIBODY [REF] Routine 09/01/21 21:00 Calcium Carbonate [Tums] 1,000 mg PO BID - Assessment Assessment:: 25 year old G1 now P1 PPD4 s/p at 40w5d - Plan Plan:: Preeclampsia with severe fetatures * occasional mild range BPs, mostly normotensive * Elevated LFTs, highest AST 388, ALT 239. Decreasing starting last night, denies any symptoms * s/p magnesium sulfate for preeclampsia with severe features * viral and autoimmune hepatitis panel pending, plan for repeat CBC and CMP in 2 days * RUQ US today Routine cares * A positive, rubella immune * GBS positive, s/p IV Ampicillin x3 doses * PO pain medication ordered PRN * Regular diet as tolerated * Encourage ambulation and fluid intake when able Hypothyroidism * Continue levothyroxine 50mcg daily Dispo: Plan for discharge home today, pending result of RUQ US. Reviewed signs of worsening preeclampsia, will do BP checks daily at home.
--- NOTE | 2021-09-02 15:01 | US ---
Indication: Elevated LFTs TECHNIQUE: Ultrasound abdomen limited. Sonographic images of the right upper quadrant were obtained using maradiaga-scale and color Doppler images. Comparison: None FINDINGS: Liver: The liver is mildly prominent with extensive increased echogenicity.. No masses. No intrahepatic biliary dilatation. Gallbladder: No stones or sludge. Normal wall thickness. No pericholecystic fluid. Common bile duct: 3 mm. Pancreas: Normal. Impression: Moderately increased echogenicity of the liver commensurate with hepatic steatosis, otherwise no acute intra-abdominal abnormalities. Dictated by Kennedy Ritchie MD @ 09/02/2021 3:01:02 PM (Electronically Signed)
== END 2021-09-02 14:15 | disposition home or self-care (01) | DRG 807 ==
LOC: MW.OBCHECK 15:11 → MW.OB 15:22 → MW.OBCHECK 15:31 → MW.OB 15:31 → OBSVTOIN 08-29 04:32 → MW.OB 08-29 08:21
PROVIDERS: ADMIT Obstetrics & Gynecology; ATTEND Obstetrics & Gynecology
PROC: 10E0XZZ Delivery of Products of Conception, External Approach (ICD-10-PCS; principal; 2021-08-29)
PROC: 0KQM0ZZ Repair Perineum Muscle, Open Approach (ICD-10-PCS; 2021-08-29)
PROC: 10907ZC Drainage of Amniotic Fluid, Therapeutic from Products of Conception, Via Natural or Artificial Opening (ICD-10-PCS; 2021-08-29)
PROC: 3E0R3BZ Introduction of Anesthetic Agent into Spinal Canal, Percutaneous Approach (ICD-10-PCS; 2021-08-29)
DX: O48.0 Post-term pregnancy (principal); Z37.0 Single live birth; O14.14 Severe pre-eclampsia complicating childbirth; O99.824 Streptococcus B carrier state complicating childbirth; O99.284 Endocrine, nutritional and metabolic diseases complicating childbirth; E03.9 Hypothyroidism, unspecified; O70.1 Second degree perineal laceration during delivery; O77.0 Labor and delivery complicated by meconium in amniotic fluid; O99.892 Other specified diseases and conditions complicating childbirth; R79.89 Other specified abnormal findings of blood chemistry; Z20.822 Contact with and (suspected) exposure to COVID-19; Z3A.40 40 weeks gestation of pregnancy
CPT/HCPCS: 01967; 36415; 51702; 59025; 59409; 76705; 76705-26; 80053; 80074; 82150; 82239; 82803; 83516; 83520; 83615; 83690; 83735; 84550; 85014; 85018; 85027; 85384; 85610; 85730; 86038; 86225; 86255; 86256; 86592; 86850; 86900; 86901; A9270-GY; J0290; J2001; J2270; J2405; J2590; J2795; J3475; J7120; U0002

== ENCOUNTER 2023-08-20 21:48 | Emergency (ER) | payer OTHER ==
[2023-08-20 22:44] VITALS: BP 116/64; PULSE 71
== END 2023-08-20 22:43 | disposition home or self-care (01) ==
LOC: MW.ED 21:48
DX: O26.892 Other specified pregnancy related conditions, second trimester (principal); O99.282 Endocrine, nutritional and metabolic diseases complicating pregnancy, second trimester; R51.9 Headache, unspecified; E03.9 Hypothyroidism, unspecified; Z3A.17 17 weeks gestation of pregnancy; Z79.899 Other long term (current) drug therapy
CPT/HCPCS: 99283

== ENCOUNTER 2025-06-04 08:26 | Emergency (ER) | payer OTHER ==
[2025-06-04 08:41] VITALS: BP 127/72; PULSE 89
[2025-06-04] MEDS ORDERED: Sodium Chloride 0.9% 2.5 ML Syringe FLUSH PRN (08:43)
[2025-06-04] MEDS ORDERED: Sodium Chloride 0.9% 10 ML Syringe FLUSH PRN (08:43)
[2025-06-04] MEDS ORDERED: Naloxone 0.4 MG/ML SDV IVPUSH PRN (08:43)
[2025-06-04] MEDS: Ondansetron 4 MG/2 ML SDV IVPUSH ONE (08:54)
[2025-06-04 09:02] LABS: BASOPHILS ABSOLUTE AUTO 0.09 K/uL (0.00-0.20); BASOPHILS PERCENT AUTO 0.5 % (0.0-1.0); EOSINOPHILS ABSOLUTE AUTO 0.16 K/uL (0.00-0.45); EOSINOPHILS PERCENT AUTO 0.9 % (0.0-6.0); IMMATURE GRAN ABSOLUTE AUTO 0.05 K/uL (0.00-0.05); IMMATURE GRAN PERCENT AUTO 0.3 % (0.0-0.4); LYMPHOCYTES ABSOLUTE AUTO 2.08 K/uL (1.00-4.80); LYMPHOCYTES PERCENT AUTO 11.4 % (24.0-44.0); MEAN PLATELET VOLUME 11.7 fL (9.4-12.3); MONOCYTES ABSOLUTE AUTO 1.04 K/uL (0.00-0.80); MONOCYTES PERCENT AUTO 5.7 % (0.0-8.0); NEUTROPHILS ABSOLUTE AUTO 14.81 K/uL (1.80-7.70); NEUTROPHILS PERCENT AUTO 81.2 % (41.0-71.0); NRBC ABSOLUTE 0.00 K/uL (0.00-0.02); NRBC PERCENT 0.0 /100WBC (0.0-0.2); PLATELET COUNT,PLT 222 K/uL (150-400); RED BLOOD CELL COUNT 4.59 M/uL (4.10-5.30); WHITE BLOOD CELL COUNT,WBC 18.23 K/uL (3.9-11.3)
[2025-06-04 09:05] LABS: APPEARANCE,URINE SLT CLOUDY; GLUCOSE,URINE NEGATIVE (NEGATIVE); OCCULT BLOOD,URINE NEGATIVE (NEGATIVE)
[2025-06-04 09:40] LABS: A/G RATIO 1.3 (0.9-1.6); ALANINE AMINOTRANSFERASE,ALT 52 IU/L (14-63); ASPARTATE AMNIOTRANSFERASE,AST 104 IU/L (15-37); BILIRUBIN TOTAL 0.6 mg/dL (0.2-1.0); BLOOD UREA NITROGEN,BUN 8 mg/dL (7.0-18.0); CARBON DIOXIDE,CO2 27.8 mmol/L (21.0-32.0); CHLORIDE,CL 104 mmol/L (98-107); CREATININE 0.7 mg/dL (0.6-1.0); GLUCOSE RANDOM 118 mg/dL (74-106); POTASSIUM,K 3.8 mmol/L (3.5-5.1); PROTEIN TOTAL,TP 7.9 g/dL (6.4-8.2); SODIUM,NA 142 mmol/L (136-145)
[2025-06-04 09:46] LABS: ESTIMATED GFR 121 mL/min (>60)
[2025-06-04] MEDS: Iopamidol 755 MG/ML 500 ML Multipack Bottle IVPUSH ONE (10:35)
[2025-06-04] MEDS ORDERED: Iopamidol 612 MG/ML 100 ML Bottle IVPUSH STA (10:41)
== END 2025-06-04 13:20 | disposition home or self-care (01) ==
LOC: MW.ED 08:26
DX: K81.9 Cholecystitis, unspecified (principal); E03.9 Hypothyroidism, unspecified; Z79.890 Hormone replacement therapy
CPT/HCPCS: 36415; 74177; 76705; 76856; 80053; 81003; 81025; 83690; 85025; 96361; 96374; 96375; 99284; J2270; J2405; J7030; Q9967